=== PATIENT | male | born 1935 | race Caucasian/White ===

== ENCOUNTER 2017-10-03 08:09 | Inpatient (IN) ==
--- NOTE | 2017-10-03 08:22 | Emergency Department Report ---
General Adult HPI - General Chief complaint: Dizziness Stated complaint: Dizziness, weakness Time Seen by Provider: 10/03/17 08:20 Source: patient, family Mode of arrival: wheelchair Limitations: no limitations - History of Present Illness HPI narrative: 82 M presents to the emergency department with the chief complaint of feeling generally weak and off balance. Patient has noted gradual increase in symptoms over the past couple of weeks. Patient has been undergoing workup for anemia as an outpatient. He has noted dark and tarry stools. Patient is anticoagulated on Xarelto. He denies any current pain or discomfort. He was at home when his symptoms began. Symptoms have been persistent in nature since onset. He denies any trauma or injury. No other complaints or associated symptoms. He does note that he did not take his Xarelto today. He cannot tell me why he is currently taking the Xarelto. Last colonoscopy/EGD was one year ago and unremarkable per patient. He is currently undergoing evaluation by Dr. Silverman and Dr. Desir for anemia. - Related Data Home Medications Medication Instructions Recorded Confirmed Amlodipine [Norvasc] 10 mg PO HS 10/03/17 10/03/17 Apremilast [Otezla] 30 mg PO DAILY 10/03/17 10/03/17 Ascorbic Acid [Vitamin C] 1,000 mg PO DAILY 10/03/17 10/03/17 Atorvastatin [Lipitor] 20 mg PO HS 10/03/17 10/03/17 Carvedilol 25 mg PO BID 10/03/17 10/03/17 Ferrous Sulfate [Iron] 325 mg PO BID 10/03/17 10/03/17 Finasteride [Proscar] 5 mg PO HS 10/03/17 10/03/17 Fosinopril [Monopril] 20 mg PO BID 10/03/17 10/03/17 Insulin Degludec/Liraglutide 1 dose SQ DAILY 10/03/17 10/03/17 [Xultophy 100 Unit-3.6MG/ml Pen] Multivit-Min/FA/Lycopen/Lutein 1 tab PO DAILY 10/03/17 10/03/17 [Centrum Silver Tablet] Rivaroxaban [Xarelto] 15 mg PO DAILY 10/03/17 10/03/17 Sitagliptin Phosphate [Januvia] 50 mg PO HS 10/03/17 10/03/17 Tamsulosin [Flomax] 0.4 mg PO HS 10/03/17 10/03/17 Vit A/Vit C/Vit E/Zinc/Copper 1 tab PO DAILY 10/03/17 10/03/17 [Preservision Areds Tablet] hydroCHLOROthiazide 25 mg PO DAILY 10/03/17 10/03/17 [Hydrochlorothiazide] Allergies Allergy/AdvReac Type Severity Reaction Status Date / Time Sulfa (Sulfonamide Allergy Intermediate RASH Verified 10/03/17 08:15 Antibiotics) hydrocodone AdvReac Mild VOMITING Verified 10/03/17 08:15 oxycodone AdvReac Mild VOMITING Verified 10/03/17 08:15 Review of Systems Constitutional: Denies: fever, chills Eyes: Denies: eye pain, vision change ENT: Denies: ear pain, throat pain Cardiovascular: Denies: chest pain, palpitations Respiratory: Denies: cough, dyspnea Gastrointestinal: Reports: melena. Denies: abdominal pain, nausea, vomiting, diarrhea Genitourinary: Denies: urgency, dysuria Musculoskeletal: Denies: back pain, arthralgia Integumentary: Denies: erythema, rash Neurological: Denies: headache, numbness, paresthesias Psychiatric: Denies: anxiety, depression Endocrine: Denies: polydipsia, polyuria Hematological/Lymphatic: Denies: easy bruising, lymphadenopathy Allergic/Immunologic: Denies: facial swelling, urticaria PFSH Patient Stated Medical History Cataracts Yes Hearing Loss Yes: 'HARD OF HEARING' Coronary Artery Disease Yes Hypertension Yes Other Cardiology Yes: ABDOMINAL AORTIC STENT Sleep Apnea Yes Diabetes Mellitus Type 2 Yes Gastroesophageal Reflux Yes Disease Other Yes: PROSTATE CANCER Anemia Yes: TAKING IRON AND VITAMIN C FOR Osteoarthritis Yes Clinic Medical History (Last Updated 10/03/17 @ 11:32 by Leia Ochoa APRN) HTN (hypertension) (Acute Medical) Iron deficiency anemia (Acute Medical) Obesity (BMI 30-39.9) (Acute Medical) Type 2 diabetes mellitus (Acute Medical) Aortic aneurysm (Acute Medical ~2002) Arthritis (Acute Medical) Coronary artery disease (Acute Medical) H/O: Ken's palsy (Acute Medical ~03/25/12) Prostate cancer (Acute Medical ~2012) Sleep apnea (Acute Medical) uses CPAP Surgical History: -CABG 1999. = pacemaker insertion. -Aortic stent for aneurysm 2002. -Colonoscopy diverticulosis 2016. -EGD 2016. -Bilateral total knees. -Inguinal hernia repair Family History: Family History (Last Reviewed 06/09/17 @ 13:48 by Katerine Messina Mariana) Father Stroke High blood pressure Brother Diabetes Sister Skin cancer (melanoma) - Social History Smoking status: Former smoker Substance use type: does not use Alcohol intake frequency: a few times a month Physical Exam - Limitations Limitations: no limitations - General General appearance: alert, in no apparent distress - Normal Exams: Head:: Normocephalic without trauma Eyes:: Pupils are PERRLA w/ EOMI, No scleral icterus, irritation, or foreign bodies noted ENMT:: No facial trauma, nasal exudates, pharyngeal erythema, or exudates are noted Dental: No fractured, loose, or missing teeth noted Neck:: Full range of motion, without adenopathy, JVD, bruits or thyromegaly Chest/Respirations:: Clear all helton, with good airflow, and symmetry bilaterally Cardiovascular:: Regular rate and rhythm, without murmur or gallop, Pulses 2+ all extremities, capillary refill, <2 seconds all extremities Abdomen:: Bowel sounds positive, soft, non-tender, non-distended, no hepatosplenomegaly, masses or bruits noted (rectal exam was heme positive with tarry maroonish stool.) Lymphatic:: No lymphadenopathy, or lymphedema noted Musculoskeletal:: No tenderness, or deformity noted, good range of motion, all extremities Integumentary:: No rashes, hives, or bruising noted, hair and nails, without abnormality Neurological:: Patient is alert (Alert and oriented x 3. CN 2-12 intact. Normal strength. Normal motor. Normal sensation. Normal speech. Normal coordination. Reflexes 2/4 in all extremities. Absent Babinski bilaterally. Gait unable to be tested. No focal deficit.), and oriented, cranial nerves, motor/sensory/cerebellar, exams w/o gross deficits, to observation Psychiatric:: Patient exhibits, appropriate attention, emotion and affect Course Vital Signs Pulse Rate 75 10/03/17 08:11 Respiratory Rate 29 H 10/03/17 08:11 Blood Pressure 146/65 H 10/03/17 08:11 Pulse Oximetry 98 10/03/17 08:11 Temperature 96.3 F L 10/03/17 10:41 Pulse Rate 69 10/03/17 10:41 Respiratory Rate 22 10/03/17 10:41 Blood Pressure 158/77 H 10/03/17 10:41 Pulse Oximetry 99 10/03/17 10:41 Medical Decision Making - MDM Narrative Medical decision making narrative: Labs/imaging were discussed in detail with the patient and family and questions are answered. Patient is given 500 mL of normal saline intravenously times one. He is given Protonix 40 mg IV times one. Patient is discussed with the hospitalist Dr. Puri and will be admitted to her service in improved condition. Type and screen is ordered in the emergency department in the event patient may need a transfusion of PRBCS. Patient and family are in agreement with the current plan of management. Patient is admitted to the service of the hospitalist in improved condition. Patient declines offered analgesic pain medication in the emergency department as he is not having any current pain or discomfort. Temperature: 97.0 F - Differential Diagnosis GI BLEED, anemia, metabolic disorder, dehydration - Lab Data Result diagrams: 10/03/17 09:07 10/03/17 09:07 Lab Results 10/03/17 10/03/17 10/03/17 Range/Units 09:07 09:07 09:07 WBC 8.2 (4.5-11.0) T/MM3 RBC 2.37 L (4.50-5.90) M/MM3 Hgb 7.5 L (13.5-17.5) GM/DL Hct 23.3 L (41-53) % MCV 98.3 (80-100) UM3 MCH 31.6 (26-34) UUG MCHC 32.2 (31-37) GM/DL RDW Std Deviation 54.5 H (36.9-50.2) FL Plt Count 182 (130-400) T/MM3 MPV 8.9 L (9.4-12.4) UM3 Immature Gran % (Auto) 1.0 H (0.0-0.5) % Neut % (Auto) 73.7 H (33-66) % Lymph % (Auto) 14.6 L (23-45) % Barrow % (Auto) 8.6 (0-9.0) % Eos % (Auto) 1.7 (0-4) % Baso % (Auto) 0.4 (0-2) % Neut # (Auto) 6.1 (1.8-7.7) T/MM3 Lymph # (Auto) 1.2 (1-4.8) T/MM3 Barrow # (Auto) 0.7 (0-0.8) T/MM3 Eos # (Auto) 0.1 (0-0.5) T/MM3 Baso # (Auto) 0.0 (0-0.2) T/MM3 Abs Immat Gran (auto) 0.08 H (0.00-0.03) T/MM3 INR (0.92-1.18) Turbidity < 20 (0-20) Sodium 141 (136-146) MEQ/L Potassium 5.1 H (3.6-5) MEQ/L Chloride 109 H (98-107) MEQ/L Carbon Dioxide 23 (22-30) MEQ/L Anion Gap 9 (5-15) meq/L BUN 36.0 H (9-20) MG/DL Creatinine 1.9 H (0.8-1.5) mg/dL Estimated Creat Clear 38 (>50) mL/min GFR Calculation 34 (>60) mL/min BUN/Creatinine Ratio 19 (6-26) RATIO Glucose 152 H (75-110) MG/DL Calculated Osmolality 282 H (261-280) MOSM/KG Calcium 9.2 (8.4-10.2) MG/DL Iron (49-181) ug/dL TIBC (261-497) ug/dL % Saturation (13-59) % Total Bilirubin 0.20 (0.20-1.30) MG/DL Icterus Index < 2 (0-7) AST 18 (17-59) U/L ALT 15 (1-50) U/L Alkaline Phosphatase 43 (38-126) U/L Troponin I < 0.012 (0-0.12) ng/ml NT-Pro-B Natriuret Pep 256 H (0-175) pg/mL Total Protein 6.1 L (6.3-8.2) g/dL Albumin 3.5 (3.5-5.0) g/dL Globulin 2.6 (2.4-3.6) G/DL Albumin/Globulin Ratio 1.3 (1.1-2.2) RATIO Specimen Hemolysis < 15 (0-25) Blood Type Cancelled Antibody Screen Cancelled Crossmatch (AHG) 10/03/17 10/03/17 10/03/17 Range/Units 09:07 09:07 09:09 WBC (4.5-11.0) T/MM3 RBC (4.50-5.90) M/MM3 Hgb (13.5-17.5) GM/DL Hct (41-53) % MCV (80-100) UM3 MCH (26-34) UUG MCHC (31-37) GM/DL RDW Std Deviation (36.9-50.2) FL Plt Count (130-400) T/MM3 MPV (9.4-12.4) UM3 Immature Gran % (Auto) (0.0-0.5) % Neut % (Auto) (33-66) % Lymph % (Auto) (23-45) % Barrow % (Auto) (0-9.0) % Eos % (Auto) (0-4) % Baso % (Auto) (0-2) % Neut # (Auto) (1.8-7.7) T/MM3 Lymph # (Auto) (1-4.8) T/MM3 Barrow # (Auto) (0-0.8) T/MM3 Eos # (Auto) (0-0.5) T/MM3 Baso # (Auto) (0-0.2) T/MM3 Abs Immat Gran (auto) (0.00-0.03) T/MM3 INR 1.39 H (0.92-1.18) Turbidity (0-20) Sodium (136-146) MEQ/L Potassium (3.6-5) MEQ/L Chloride (98-107) MEQ/L Carbon Dioxide (22-30) MEQ/L Anion Gap (5-15) meq/L BUN (9-20) MG/DL Creatinine (0.8-1.5) mg/dL Estimated Creat Clear (>50) mL/min GFR Calculation (>60) mL/min BUN/Creatinine Ratio (6-26) RATIO Glucose (75-110) MG/DL Calculated Osmolality (261-280) MOSM/KG Calcium (8.4-10.2) MG/DL Iron 147 (49-181) ug/dL TIBC 313 (261-497) ug/dL % Saturation 47 (13-59) % Total Bilirubin (0.20-1.30) MG/DL Icterus Index (0-7) AST (17-59) U/L ALT (1-50) U/L Alkaline Phosphatase (38-126) U/L Troponin I (0-0.12) ng/ml NT-Pro-B Natriuret Pep (0-175) pg/mL Total Protein (6.3-8.2) g/dL Albumin (3.5-5.0) g/dL Globulin (2.4-3.6) G/DL Albumin/Globulin Ratio (1.1-2.2) RATIO Specimen Hemolysis (0-25) Blood Type AB Positive Antibody Screen Negative Crossmatch (AHG) See Detail - Radiology Data Chest x-ray: No acute processes. CT head: No acute processes. - EKG Data EKG #1 EKG results narrative: Electronic ventricular pacemaker. 74 bpm. No STEMI. Disposition Clinical Impression: GI bleed Qualifiers: GI bleed type/associated pathology: unspecified gastrointestinal hemorrhage type Qualified Code(s): K92.2 - Gastrointestinal hemorrhage, unspecified Disposition: 02 To [facility] Condition: Stable Time of Disposition: 09:30 (Admit. Dr. Puri. ) - Seen By: physician
--- OUTSIDE RECORDS SUMMARY | 2017-10-03 08:32 | External Medical Summary | Referral Summary ---
:1935 Author Organization [facility] Address [address] [place] [address] Care Team Providers Name Role Phone Vinny Licea Primary Care Physician Encounter [facility] [id number] Date(s): 06/21/17 - 06/21/17 [facility] [address] [place] [address]- [place] Encounter Diagnosis History of basal cell carcinoma (Discharge Diagnosis) - 06/21/17 Plaque psoriasis (Discharge Diagnosis) - 06/21/17 Discharge Disposition: 01-Home or Self Care Attending Physician: Josh You PA-C Admitting Physician: Josh You PA-C Problem List Condition Effective Dates Status Health Status Informant AAA (abdominal aortic Active aneurysm)(Confirmed) Abdominal Aortic Aneurysm(Confirmed) Resolved Adult-onset obesity(Confirmed) Active Anemia(Confirmed) Active Benign essential Active hypertension(Confirmed) Benign Prostatic Resolved hypertrophy(Confirmed) CABG/Pacemaker(Confirmed) Resolved Cardiac pacemaker(Confirmed) Active Chronic neck pain(Confirmed) Active Coronary Artery Disease(Confirmed) Resolved CAD (coronary artery Active disease)(Confirmed) DDD (degenerative disc disease), Active lumbar(Confirmed) Diabetic nephropathy(Confirmed) Active Displacement of lumbar Active intervertebral disc without myelopathy (disorder)(Confirmed) GERD without esophagitis(Confirmed) Active Hearing loss(Confirmed) Active Chronic right hip pain(Confirmed) Active Hypercholesterolemia(Confirmed) Active Adult hypothyroidism(Confirmed) Active Kidney stone(Confirmed) Active Low back pain (finding)(Confirmed) Active Lumbosacral spondylosis without Active myelopathy (disorder)(Confirmed) Cancer of prostate(Confirmed) Active NIDDY (non-insulin dependent Active diabetes mellitus in young)(Confirmed) Methicillin resistant Staphylococcus Active aureus(Confirmed)1 Overweight(Confirmed) Active PVD (peripheral vascular Active disease)(Confirmed) Prostate Cancer(Confirmed) Resolved Psoriasis(Confirmed) Active Bright red rectal Active bleeding(Confirmed) Sleep apnea(Confirmed) Active Spinal stenosis of lumbar region Active (disorder)(Confirmed) Thoracic or lumbosacral neuritis or Active radiculitis, unspecified(Confirmed) 1Wound from Buttock collected 06/25/15 10:16:00 CDT Allergies, Adverse Reactions, Alerts Substance Reaction Severity Status sulfamethoxazole Eczema (rash) Medium Active sulfanilamide topical Rash Active Medications amLODIPine 10 mg oral tablet 10 mg 1 tabs, Oral, Daily, # 90 tabs, 0 Refill(s), Pharmacy: [facility], 1 tabs Oral Daily Start Date: 11/23/16 Status: Orderedatorvastatin 20 mg oral tablet 20 mg 1 tabs, Oral, Daily, # 90 tabs, 0 Refill(s), Pharmacy: [facility], 1 tabs Oral Daily Start Date: 11/23/16 Status: Orderedbetamethasone dipropionate 0.05% topical ointment 1 danelle, Topical, BID, # 45 g, 3 Refill(s), Pharmacy: [facility] [id number] Start Date: 03/31/17 Status: Orderedcarvedilol 25 mg oral tablet See Instructions, TAKE 1 TABLET TWICE A DAY, # 180 tabs, 1 Refill(s), eRx: [facility] Start Date: 12/09/16 Status: Orderedfinasteride 5 mg oral tablet 5 mg 1 tabs, Oral, Daily, # 90 tabs, 1 Refill(s), Pharmacy: [facility], 1 tabs Oral Daily Start Date: 05/27/16 Status: Orderedfosinopril 20 mg oral tablet 20 mg 1 tabs, Oral, BID, # 180 tabs, 1 Refill(s), Pharmacy: [facility], 1 tabs Oral BID Start Date: 11/23/16 Status: OrderedhydroCHLOROthiazide 25 mg oral tablet 25 mg 1 tabs, Oral, Daily, # 90 tabs, 1 Refill(s), Pharmacy: [facility], 1 tabs Oral Daily Start Date: 05/27/16 Status: OrderedLantus Solostar Pen 100 units/mL subcutaneous solution 50 units, SubCutaneous, Bedtime (once a day), DX: E11.9, # 45 mL, 1 Refill(s), Pharmacy: [facility], 50 units SubCutaneous Bedtime ( once a day),Instr:DX: E11.9 Start Date: 05/27/16 Status: OrderedmetFORMIN 500 mg oral tablet See Instructions, 2 tabs oral in the morning and 3 tabs oral at bedtime., # 450 tabs, 0 Refill(s), Pharmacy: [facility], 2 tabs oral in the morning and 3 tabs oral at bedtime. Start Date: 11/23/16 Status: OrderedNovoLOG FlexPen 100 units/mL subcutaneous solution See Instructions, INJECT 20 UNITS SUBCUTANEOUSLY 3 TIMES A DAY BEFORE MEALS DX: E11.9,# 54 mL, 1 Refill(s), Pharmacy: [facility], INJECT 20 UNITS SUBCUTANEOUSLY 3 TIMES A DAY BEFORE MEALS; DX: E11.9 Start Date: 11/23/16 Status: OrderedOtezla 30 mg oral tablet 30 mg 1 tabs, Oral, BID, # 30 tabs, 0 Refill(s) Start Date: 12/03/15 Status: OrderedProtonix 40 mg oral delayed release tablet mg tabs, Oral, Daily, 0 Refill(s) Start Date: 07/15/16 Status: Orderedtamsulosin 0.4 mg oral capsule 0.4 mg 1 caps, Oral, Daily, # 90 caps, 1 Refill(s), Pharmacy: [facility], 1 caps Oral Daily Start Date: 05/27/16 Status: OrderedXarelto 15 mg oral tablet 15 mg 1 tabs, Oral, qPM, # 30 tabs, 0 Refill(s) Start Date: 07/16/15 Status: Ordered Immunizations Given and Recorded Vaccine Date Status Refusal Reason pneumococcal 13-valent conjugate vaccine 12/30/15 Given influenza virus vaccine, inactivated 12/30/15 Given influenza virus vaccine, inactivated 01/08/15 Given influenza virus vaccine, inactivated 12/04/13 Recorded influenza virus vaccine, live 11/30/12 Given influenza virus vaccine, live 11/11/11 Given Procedures Procedure Date Related Diagnosis Body Site Status Left L4-S1 Radiofrequency 07/05/13 Completed L4-5 Translaminar 06/19/13 Completed Lumbar epidural steroid injection - 12/09/10 Completed L2-3 translaminar Knee replacement - R 2007 Completed Knee replacement _ l 2007 Completed History of abdominal aortic aneurysm 2002 Completed repair CABG - Coronary artery bypass 2001 Completed graft/pacemaker Angioplasty 1990 Completed Hernia repair Completed History of back surgery Completed Social History Social History Type Response Smoking Status Former smoker; Type: Cigarettes entered on: 08/15/13 Assessment and Plan Extracted from: Title: Office Visit Note Author: Johs You PA-C Date: 06/21/17 1.Plaque psoriasis Patient is relatively clear on exam today. His problematic area continues to be the bilateral buttocks. He would like to continue the current regimen. Welcome to continue applying betamethason e topically, as needed. He was counseled on the use of topical steroids and their associated risks and side effects. I will refill Otezla for an additional year. He will continue with 30 mg daily due to associated GI upset. Patient welcome to follow up sooner with any concerns, otherwise will plan to follow-up on a yearly basis. Ordered: Office Visit Level 3 Est 00180 2.History of basal cell carcinoma No sign of recurrence at this time. I've asked the patient to monitor this lesion closely and follow-up with any concerns. Ordered: Office Visit Level 3 Est 61239
--- OUTSIDE RECORDS SUMMARY | 2017-10-03 08:32 | External Medical Summary | Referral Summary ---
:1935 Author Organization [facility] Address [address] [place] [address] Care Team Providers Name Role Phone Vinny Licea Primary Care Physician Encounter [facility] [id number] Date(s): 12/21/16 - 12/21/16 [facility] [address] [place] [address]- [place] Discharge Diagnosis: Psoriasis vulgaris Discharge Diagnosis: Neoplasm of uncertain behavior of skin Discharge Disposition: 01-Home or Self Care Attending [...] Daily, # 90 tabs, 0 Refill(s), Pharmacy: [facility], 1 tabs Oral Daily Start Date: 11/23/16 Status: Orderedatorvastatin 20 mg oral tablet 20 mg 1 tabs, Oral, Daily, # 90 tabs, 0 Refill(s), Pharmacy: [facility], 1 tabs Oral Daily Start Date: 11/23/16 Status: Orderedcarvedilol 25 mg oral tablet See Instructions, TAKE 1 TABLET TWICE A DAY, # 180 tabs, 1 Refill(s), eRx: [facility] Start Date: 12/09/16 Status: Orderedfinasteride 5 mg oral tablet 5 mg 1 tabs, Oral, Daily, # 90 tabs, 1 Refill(s), Pharmacy: [facility], 1 tabs Oral Daily Start Date: 05/27/16 Status: Orderedfosinopril 20 mg oral tablet 20 mg 1 tabs, Oral, BID, # 180 tabs, 1 Refill(s), Pharmacy: [facility], 1 tabs Oral BID Start Date: 11/23/16 Status: OrderedhydroCHLOROthiazide 25 mg oral tablet 25 mg 1 tabs, Oral, Daily, # 90 tabs, 1 Refill(s), Pharmacy: [facility], 1 tabs Oral Daily Start Date: 05/27/16 Status: OrderedLantus Solostar Pen 100 units/mL subcutaneous solution 50 units, SubCutaneous, Bedtime (once a day), DX: E11.9, # 45 mL, 1 Refill(s), Pharmacy: [facility], 50 units SubCutaneous Bedtime ( once a day),Instr:DX: E11.9 Start Date: 05/27/16 Status: OrderedmetFORMIN 500 mg oral tablet See Instructions, 2 tabs oral in the morning and 3 tabs oral at bedtime., # 450 tabs, 0 Refill(s), Pharmacy: [facility], 2 tabs oral in the morning and 3 tabs oral at bedtime. Start Date: 11/23/16 Status: OrderedNovoLOG FlexPen 100 units/mL subcutaneous solution See Instructions, INJECT 20 UNITS SUBCUTANEOUSLY 3 TIMES A DAY BEFORE MEALS DX: E11.9,# 54 mL, 1 Refill(s), Pharmacy: [facility], INJECT 20 UNITS SUBCUTANEOUSLY 3 TIMES [...] Daily, # 90 caps, 1 Refill(s), Pharmacy: [facility], 1 caps Oral Daily Start Date: [...] Procedures Procedure Date Related Diagnosis Body Site Biopsy of skin, subcutaneous tissue and/or 12/21/16 mucous membrane (including simple closure), unless otherwise listed; single lesion Left L4-S1 Radiofrequency 07/05/13 L4-5 Translaminar 06/19/13 Lumbar epidural steroid injection - L2-3 12/09/10 translaminar Knee replacement - R 2007 Knee replacement _ l 2007 History of abdominal aortic aneurysm repair 2002 CABG - Coronary artery bypass graft/pacemaker 2001 Angioplasty 1990 Hernia repair History of back surgery Social History Social History Type Response Smoking Status Former smoker; Type: Cigarettes entered on: 08/15/13 Assessment and Plan Extracted from: Title: Office Visit Note Author: Josh You PA-C Date: 12/21/16 1.Psoriasis vulgaris Patient continues to report almost complete clearance of psoriasis. He would like to continue with Otezla 30mg daily. He will continue to use his topical steroid twice daily, as needed. He was counseled on these medications and their associated risks and side effects. He is welcome to follow-up in 6 months for recheck, sooner if needed. Ordered: Office Visit Level 3 Est 38150 2.Neoplasm of uncertain behavior of skin BCC. Shave biopsy was performed and the patient tolerated this well. We will call with results. Options/risks/benefits of the procedure were discussed and explained and consent was obtained. Specifically discussed risks of scarring, abnormal scarring, skin changes such as color or texture hutchins es, recurrence, bleeding, infection, need for further treatment, and other unexpected risks/outcomes of these types of skin procedures. Final timeout performed. Site(s) for biopsy were prepared by c leaning and injecting each site with <1cc of buffered lidocaine with epi 1:100, 000. Site(s) were removed with shave blade in usual fashion. Hemostasis was obtained with drysol and/or hyfrecation as needed. Ointment and bandages placed where needed. Wound care instructions given Ordered: Biopsy Of Skin, Single Lesion 70702 Office Visit Level 3 Est 59899
--- OUTSIDE RECORDS SUMMARY | 2017-10-03 08:32 | External Medical Summary | Referral Summary ---
:1935 Author Organization [facility], [facility] Address [address] [place] [address] [place] [id number] Care Team Providers Name Role Phone Vinny Licea Primary Care Physician Encounter [facility] [id number] Date(s): 07/15/16 - 07/15/16 [facility] [address] [place] [phone] Discharge Diagnosis: NIDDY (non-insulin dependent diabetes mellitus in young) Discharge Diagnosis: Kidney stone Discharge Diagnosis: GERD without esophagitis Discharge Diagnosis: PVD (peripheral vascular disease) Discharge Diagnosis: CAD (coronary artery disease) Discharge Diagnosis: Benign essential hypertension Discharge Diagnosis: Cancer of prostate Discharge Diagnosis: Cardiac pacemaker Discharge Diagnosis: Adult hypothyroidism Discharge Diagnosis: Psoriasis Discharge Diagnosis: Dysuria Discharge Diagnosis: AAA (abdominal aortic aneurysm) Discharge Diagnosis: Adult-onset obesity Discharge Disposition: 01-Home or Self Care Attending Physician: Vinny Licea MD Admitting Physician: Vinny Licea MD Vital Signs Most recent to oldest [Reference Range]: 1 Blood Pressure [90-140/60-90 mmHg] 110/70 mmHg (07/15/16 4:33 PM) Problem List Condition Effective Dates Status Health [...] Daily, # 90 tabs, 1 Refill(s), Pharmacy: [facility], 1 tabs Oral Daily Start Date: 05/27/16 Status: Orderedatorvastatin 20 mg oral tablet 20 mg 1 tabs, Oral, Daily, # 90 tabs, 1 Refill(s), Pharmacy: [facility], 1 tabs Oral Daily Start Date: 05/27/16 Status: Orderedcarvedilol 25 mg oral tablet 25 mg 1 tabs, Oral, BID, # 180 tabs, 1 Refill(s), Pharmacy: [facility], 1 tabs Oral BID Start Date: 05/27/16 Status: OrderedCipro 500 mg oral tablet 500 mg 1 tabs, Oral, q12hr, X 10 days, # 20 tabs, 0 Refill(s), [id number],1 tabs Oral q12hr,x10 days Start Date: 07/15/16 Stop Date: 07/25/16 Status: Orderedfinasteride 5 mg oral tablet 5 mg 1 tabs, Oral, Daily, # 90 tabs, 1 Refill(s), Pharmacy: [facility], 1 tabs Oral Daily Start Date: 05/27/16 Status: Orderedfosinopril 20 mg oral tablet 20 mg 1 tabs, Oral, BID, # 180 tabs, 1 Refill(s), Pharmacy: [facility], 1 tabs Oral BID Start Date: 05/27/16 Status: OrderedhydroCHLOROthiazide 25 mg oral tablet 25 mg 1 tabs, Oral, Daily, # 90 tabs, 1 Refill(s), Pharmacy: [facility], 1 tabs Oral Daily Start Date: 05/27/16 Status: OrderedLantus Solostar Pen 100 units/mL subcutaneous solution 50 units, SubCutaneous, Bedtime (once a day), DX: E11.9, # 45 mL, 1 Refill(s), Pharmacy: [facility], 50 units SubCutaneous Bedtime ( once a day),Instr:DX: E11.9 Start Date: 05/27/16 Status: OrderedmetFORMIN 500 mg oral tablet See Instructions, 2 tabs oral in the morning and 3 tabs oral at bedtime., # 450 tabs, 1 Refill(s), Pharmacy: [facility], 2 tabs oral in the morning and 3 tabs oral at bedtime. Start Date: 05/27/16 Status: OrderedNovoLOG FlexPen 100 units/mL subcutaneous solution See Instructions, INJECT 20 UNITS SUBCUTANEOUSLY 3 TIMES A DAY BEFORE MEALS DX: E11.9,# 54 mL, 1 Refill(s), Pharmacy: [facility], INJECT 20 UNITS SUBCUTANEOUSLY 3 TIMES A DAY BEFORE MEALS; DX: E11.9 Start Date: 05/27/16 Status: OrderedOtezla 30 mg oral tablet 30 mg 1 tabs, Oral, BID, # 30 tabs, 0 Refill(s) Start Date: 12/03/15 Status: OrderedProtonix 40 mg oral delayed release tablet mg tabs, Oral, Daily, 0 Refill(s) Start Date: 07/15/16 Status: Orderedtamsulosin 0.4 mg oral capsule 0.4 mg 1 caps, Oral, Daily, # 90 caps, 1 Refill(s), Pharmacy: [facility], 1 caps Oral Daily Start Date: 05/27/16 Status: OrderedXarelto 15 mg oral tablet 15 mg 1 tabs, Oral, qPM, # 30 tabs, 0 Refill(s) Start Date: 07/16/15 Status: Ordered Results Urinalysis Most recent to oldest [Reference Range]: 1 UA Color Yellow (07/15/16 5:22 PM) UA Appear Clear (07/15/16 5:22 PM) UA pH [5.0-8.0] 6.0 (07/15/16 5:22 PM) UA Leuk Est [Negative] Negative (07/15/16 5:22 PM) UA Nitrite [Negative] Negative (07/15/16 5:22 PM) UA Protein [Negative] Negative (07/15/16 5:22 PM) UA Glucose [Negative] Negative (07/15/16 5:22 PM) UA Ketones [Negative] Negative (07/15/16 5:22 PM) UA Urobilinogen [<1.0 mg/dL] 1.0 mg/dL (07/15/16 5:22 PM) UA Bili [Negative] Negative (07/15/16 5:22 PM) UA Blood [Negative] Negative (07/15/16 5:22 PM) UA Spec Grav [1.003-1.030] 1.010 (07/15/16 5:22 PM) Type Voided (07/15/16 5:22 PM) Immunizations Given and Recorded Vaccine Date Status Refusal Reason influenza virus vaccine, inactivated 12/30/15 Given influenza virus vaccine, inactivated 01/08/15 Given influenza virus vaccine, inactivated 12/04/13 Recorded influenza virus vaccine, live 11/30/12 Given influenza virus vaccine, live 11/11/11 Given pneumococcal 13-valent conjugate vaccine 12/30/15 Given Procedures Procedure Date Related Diagnosis Body Site Left L4-S1 Radiofrequency 07/05/13 L4-5 Translaminar 06/19/13 Lumbar epidural steroid injection - L2-3 12/09/10 translaminar Knee replacement - R 2007 Knee replacement _ l 2007 History of abdominal aortic aneurysm repair 2002 CABG - Coronary artery bypass graft/pacemaker 2001 Angioplasty 1990 Hernia repair History of back surgery Social History Social History Type Response Smoking Status Former smoker; Type: Cigarettes Assessment and Plan Extracted from: Title: Ambulatory Patient Education Author: Vinny Licea MD Date: Surgery Abdominal Aortic Aneurysm Endograft Repair Abdominal aortic aneurysm endograft repair is a procedure to fix an abdominal aortic aneurysm. An aneurysm is a weakened or damaged part of an artery wall that bulges out from the normal force of blood pumping through the body. An abdominal aortic aneurysm is an aneurysm that occurs in the lower part of the aorta, the main artery of the body. The repair procedure is often done if the aneurysm gets so large that it might burst (rupture). A ruptured aneurysm would cause bleeding inside the body that is life threatening. Before that happens, th is procedure is needed to fix the condition. The procedure may also be done if the aneurysm causes symptoms such as pain in the back, abdomen, or side. In this procedure, a tube made up of fabric suppor castro by a metal mesh (endograft or stent-graft) is placed in the weakened part of the aorta to repair the area. This procedure may take 1 3 hours. LET YOUR HEALTH CARE PROVIDER KNOW ABOUT: Any allergies you have. All medicines you are taking, including vitamins, herbs, eye drops, creams, and dwdw-hye-rpdnpzr medicines. Anysteroids you are using (by mouth or as creams). Previous problems you or members of your family have had with the use of anesthetics. Any blood disorders or history of blood clots. Previous surgeries you have had. Other health problems you have. Possibility of , if this applies. RISKS AND COMPLICATIONS Generally, endograft repair of an abdominal aortic aneurysm is a safe procedure. However, as with any surgical procedure, complications can occur. Possible complications include: Leaking of blood around the endograft. Infection. Damage to surrounding nerves, tissues, or structures. Displacement of the endograft away from the proper location. Blockage of blood flow through the graft. Blood clots. Kidney problems. Blockage of blood flow to the legs (rare). Rupture of the aorta even after successful endograft repair (rare). BEFORE THE PROCEDURE You may need to have blood tests, a test to check heart rhythm ( electrocardiography), or a test to check blood flow (angiography) done before the day of the procedure. Imaging tests will be done to help determine the size and location of the aneurysm. This could include ultrasonography, a CT scan, or an MRI. Ask your health care provider about changing or stopping your regular medicines. Do not eat or drink anything for at least 8 hours before the procedure. Ask your health care provider if it is okay to take any needed medicines with a sip of water. Do not smoke for as long as possible before the surgery. Make plans to have someone drive you home after your hospital stay. PROCEDURE You will be given medicine to help you relax (sedative). You may also be given medicine to make you sleep through the procedure (general anesthetic) or medicine to numb the affected area of the body (local orregional anesthetic). Medicine may be given through an intravenous (IV) access tube that is put into one of your veins. Your groin area will be washed with a germ-killing solution (antiseptic). Hair may be removed from this area. Small cuts (incisions) are usually made on both sides of the groin. Long, thin tubes (catheters) are passed through these incisions, inserted into the artery in your thigh, and moved up into the aneurysm in the aorta. The health care provider uses live X-ray pictures to guide the endograft through the catheterto the site of the aneurysm. The endograft is released to seal off the aneurysm and line the aorta. It prevents blood from flowing into the aneurysm and helps prevent it from rupturing. The placement of the endograft is permanent. X-rays are used to check the position of the endograft and confirm proper placement. The catheters are taken out, and the incisions are closed with stitches. AFTER THE PROCEDURE You will need to lie flat for several hours. Bending the leg that has the insertion site can cause it to bleed and swell. You will then be encouraged to move around several times a day and to gradually increase activity. Your blood pressure and pulse (vital signs) will be checked often. You will receive medicines to control pain. Certain tests may be done to check the function and location of the endograft after your procedure. You will need to stay in the hospital for about 1 4 days. This information is not intended to replace advice given to you by your health care provider. Make sure you discuss any questions you have with your health care provider. Document Released: 07/04/2009 Document Revised: 01/27/2016 Document Reviewed: 07/07/2013 [employer] Interactive Patient Education 2016 [employer] No follow up information was provided. Extracted from: Title: Office Visit Note Author: Vinny Licea MD Date: 07/15/16 Assessment/Plan AAA (abdominal aortic aneurysm) This issue was reviewed, appears stable, and current therapy continued except as mentioned. Appropriate lab was reviewed from the most recent appropriate entry and lab was ordered if needed in the c guy/nursing orders, and follow up recommended generally in 90 days and no later then six months. Normal CT with Dr. Aponte on 04/07/2016 reported. Adult hypothyroidism This issue was reviewed, appears stable, and current therapy continued except as mentioned. Appropriate lab was reviewed from the most recent appropriate entry and lab was ordered if needed in the c guy/nursing orders, and follow up recommended generally in 90 days and no later then six months. Lab stable. Adult-onset obesity Diet and exercise as tolerated and feasible. Consider medication when interested. Benign essential hypertension This issue was reviewed, appears stable, and current therapy continued except as mentioned. Appropriate lab was reviewed from the most recent appropriate entry and lab was ordered if needed in the c guy/nursing orders, and follow up recommended generally in 90 days and no later then six months. The patient reports their blood pressure has been stable at home and is not having any significant or related problems. There has been no chest pain, chest pressure, soa/maldonado. IMPRESSION: Mild degenerative changes with no acute abnormalities demonstrated. [1] IMPRESSION: Questionable constipation. [2] CAD (coronary artery disease) This issue was reviewed, appears stable, and current therapy continued except as mentioned. Appropriate lab was reviewed from the most recent appropriate entry and lab was ordered if needed in the c guy/nursing orders, and follow up recommended generally in 90 days and no later then six months. [address] Hannah. Cancer of prostate This issue was reviewed, appears stable, and current therapy continued except as mentioned. Appropriate lab was reviewed from the most recent appropriate entry and lab was ordered if needed in the cpoe/nursing orders, and follow up recommended generally in 90 days and no later then six months. Seeing Urology in [facility]. Note from 03/31 reviewed. Cardiac pacemaker This issue was reviewed, appears stable, and current therapy continued except as mentioned. Appropriate lab was reviewed from the most recent appropriate entry and lab was ordered if needed in the c guy/nursing orders, and follow up recommended generally in 90 days and no later then six [address] Aponte. Dysuria UA pending. Cipro 500mg po bid for ten days. GERD without esophagitis This issue was reviewed, appears stable, and current therapy continued except as mentioned. Appropriate lab was reviewed from the most recent appropriate entry and lab was ordered if needed in the c guy/nursing orders, and follow up recommended generally in 90 days and no later then six months. Kidney stone UA and Urology consultation when willing. NIDDY (non-insulin dependent diabetes mellitus in young) The patient was notified for the need for regular quarterly f/u of their diabetes. Further any pertinent medication, supplies, etc were refilled. Additionally, they are to have annual eye exams, foot exams, and regular care. Lab stable. Psoriasis This issue was reviewed, appears stable, and current therapy continued except as mentioned. Appropriate lab was reviewed from the most recent appropriate entry and lab was ordered if needed in the c guy/nursing orders, and follow up recommended generally in 90 days and no later then six months. Seeing Derm. Impression and Plan Diagnosis Plaque psoriasis ([id number] L40.0, Working, Medical). Counseled: Patient, Family, Regarding diagnosis, Regarding treatment , Regarding medications, Verbalized understanding. Dx/Order Association Plan: Diagnosis: Plaque psoriasis Comment: Overall responding well to Otezla but no completely clear with residual plaques on back, buttocks. He is having some diarrhea at times from otezla. After discussion patient and his wi fe they would like to first try to cut back on Otezla to 30mg QD for a couple months. If not effective or if persistent diarrhea then they will f/u for probable planning for humira next step. Follow up in 3 months or sooner as needed. . This note is prepared by Vinny Gregg, acting as medical reimbursement specialist for Dr. Haezl. The documentation recorded by the scribe reflects the service I personally performed and the decisions made by me. [3] PVD (peripheral vascular disease) This issue was reviewed, appears stable, and current therapy continued except as mentioned. Appropriate lab was reviewed from the most recent appropriate entry and lab was ordered if needed in the c guy/nursing orders, and follow up recommended generally in 90 days and no later then six months.
--- OUTSIDE RECORDS SUMMARY | 2017-10-03 08:32 | External Medical Summary | Referral Summary ---
:1935 Author Organization [facility] Address [address] [place] [address] Care Team Providers Name Role Phone Vinny Licea Primary Care Physician Encounter VC Date(s): 06/01/16 - 06/01/16 [facility] [address] [place] [address]- us Discharge Disposition: 01-Home or Self Care Attending Physician: Washington Hazel MD Admitting Physician: Washington Hazel MD Vital Signs No data available for this section Problem List Condition Effective Dates Status Health [...] pain(Confirmed) Active Hypercholesterolemia(Confirmed) Active Adult hypothyroidism(Confirmed) Active Low back pain (finding)(Confirmed) Active Lumbosacral [...] Daily, # 90 tabs, 1 Refill(s), Pharmacy: [facility], 1 tabs Oral Daily Start Date: 05/27/16 Status: Orderedatorvastatin 20 mg oral tablet 20 mg 1 tabs, Oral, Daily, # 90 tabs, 1 Refill(s), Pharmacy: [facility], 1 tabs Oral Daily Start Date: 05/27/16 Status: Orderedbetamethasone dipropionate 0.05% topical ointment 1 danelle, Topical, BID, # 45 g, 3 Refill(s), [facility] [id number] Start Date: 10/01/15 Status: Orderedcarvedilol 25 mg oral tablet 25 mg 1 tabs, Oral, BID, # 180 tabs, 1 Refill(s), Pharmacy: [facility], 1 tabs Oral BID Start Date: 05/27/16 Status: Orderedfinasteride 5 mg oral tablet 5 mg 1 tabs, Oral, Daily, # 90 tabs, 1 Refill(s), Pharmacy: [facility], 1 tabs Oral Daily Start Date: 05/27/16 Status: Orderedfosinopril 20 mg oral tablet 20 mg 1 tabs, Oral, BID, # 180 tabs, 1 Refill(s), Pharmacy: [facility], 1 tabs Oral BID Start Date: 05/27/16 Status: OrderedhydroCHLOROthiazide 25 mg oral tablet 25 mg 1 tabs, Oral, Daily, # 90 tabs, 1 Refill(s), Pharmacy: [facility], 1 tabs Oral Daily Start Date: 05/27/16 Status: OrderedLantus Solostar Pen 100 units/mL subcutaneous solution 50 units, SubCutaneous, Bedtime (once a day), DX: E11.9, # 45 mL, 1 Refill(s), Pharmacy: [facility], 50 units SubCutaneous Bedtime ( once a day),Instr:DX: E11.9 Start Date: 05/27/16 Status: OrderedmetFORMIN 500 mg oral tablet See Instructions, 2 tabs oral in the morning and 3 tabs oral at bedtime., # 450 tabs, 1 Refill(s), Pharmacy: [facility], 2 tabs oral in the morning and 3 tabs oral at bedtime. Start Date: 05/27/16 Status: OrderedNovoLOG FlexPen 100 units/mL subcutaneous solution See Instructions, INJECT 20 UNITS SUBCUTANEOUSLY 3 TIMES A DAY BEFORE MEALS DX: E11.9,# 54 mL, 1 Refill(s), Pharmacy: [facility], INJECT 20 UNITS SUBCUTANEOUSLY 3 TIMES A DAY BEFORE MEALS; DX: E11.9 Start Date: 05/27/16 Status: OrderedOtezla 30 mg oral tablet 30 mg 1 tabs, Oral, BID, # 30 tabs, 0 Refill(s) Start Date: 12/03/15 Status: Orderedtamsulosin 0.4 mg oral capsule 0.4 mg 1 caps, Oral, Daily, # 90 caps, 1 Refill(s), Pharmacy: [facility], 1 caps Oral Daily Start Date: 05/27/16 Status: OrderedXarelto 15 mg oral tablet 15 mg 1 tabs, Oral, qPM, # 30 tabs, 0 Refill(s) Start Date: 07/16/15 Status: Ordered Results No data available for this section Immunizations Given and Recorded Vaccine Date Status [...] Extracted from: Title: Ambulatory Patient Education Author: Washington Hazel MD Date: 06/01/16 Home Health Care Psoriasis Psoriasis is a long-term (chronic) condition of skin inflammation. It occurs because your immune system causes skin cells to form too quickly. As a result, too many skin cells grow and create raised, re d patches (plaques) that look silvery on your skin. Plaques may appear anywhere on your body. They can be any size or shape. Psoriasis can come and go. The condition varies from mild to very severe. It cannot be passed from one person to another (not contagious). CAUSES The cause of psoriasis is not known, but certain factors can make the condition worse. These include: Damage or trauma to the skin, such as cuts, scrapes, sunburn, and dryness. Lack of sunlight. Certain medicines. Alcohol. Tobacco use. Stress. Infections caused by bacteria or viruses. RISK FACTORS This condition is more likely to develop in: People with a family history of psoriasis. People who are . People who are between the ages of 15 30 and 50 60 years old. SYMPTOMS There are five different types of psoriasis. You can have more than one type of psoriasis during your life. Types are: Plaque. Guttate. Inverse. Pustular. Erythrodermic. Each type of psoriasis has different symptoms. Plaque psoriasis symptoms include red, raised plaques with a silvery white coating (scale). These plaques may be itchy. Your nails may be pitted and crumbly or fall off. Guttate psoriasis symptoms include small red spots that often show up on your trunk, arms, and legs. These spots may develop after you have been sick, especially with strep throat. Inverse psoriasis symptoms include plaques in your underarm area, under your breasts, or on your genitals, groin, or buttocks. Pustular psoriasis symptoms include pus-filled bumps that are painful, red, and swollen on the palms of your hands or the soles of your feet. You also may feel exhausted, feverish, weak, or have no appetite. Erythrodermic psoriasis symptoms include bright red skin that may look burned. You may have a fast heartbeat and a body temperature that is too high or too low. You may be itchy or in pain. DIAGNOSIS Your health care provider may suspect psoriasis based on your symptoms and family history. Your health care provider will also do a physical exam. This may include a procedure to remove a tissue sample (biopsy) for testing. You may also be referred to a health care provider who specializes in skin diseases (software database architect). TREATMENT There is no cure for this condition, but treatment can help manage it. Goals of treatment include: Helping your skin heal. Reducing itching and inflammation. Slowing the growth of new skin cells. Helping your immune system respond better to your skin. Treatment varies, depending on the severity of your condition. Treatment may include: Creams or ointments. Ultraviolet ray exposure (light therapy). This may include natural sunlight or light therapy in a medical office. Medicines (systemic therapy). These medicines can help your body better manage skin cell turnover and inflammation. They may be used along with light therapy or ointments. You may also get antibiotic medicines if you have an infection. HOME CARE INSTRUCTIONS Skin Care Moisturize your skin as needed. Only use moisturizers that have been approved by your health care provider. Apply cool compresses to the affected areas. Do not scratch your skin. Lifestyle Do not use tobacco products. This includes cigarettes, chewing tobacco, and e- cigarettes. If you need help quitting, ask your health care provider. Drink little or no alcohol. Try techniques for stress reduction, such as meditation or yoga. Get exposure to the sun as told by your health care provider. Do not get sunburned. Consider joining a psoriasis support group. Medicines Take or use [id number]-vch-[id number] and prescription medicines only as told by your health care provider. If you were prescribed an antibiotic, take or use it as told by your health care provider. Do not stop taking the antibiotic even if your condition starts to improve. General Instructions Keep a journal to help track what triggers an outbreak. Try to avoid any triggers. See a counselor or social services manager if feelings of sadness, frustration, and hopelessness about your condition are interfering with your work and relationships. Keep all follow-up visits as told by your health care provider. This is important. SEEK MEDICAL CARE IF: Your pain gets worse. You have increasing redness or warmth in the affected areas. You have new or worsening pain or stiffness in your joints. Your nails start to break easily or pull away from the nail bed. You have a fever. You feel depressed. This information is not intended to replace advice given to you by your health care provider. Make sure you discuss any questions you have with your health care provider. Document Released: 02/12/2001 Document Revised: 11/06/2015 Document Reviewed: 07/03/2015 [employer] Patient Education 2016 [employer] No follow up information was provided. Extracted from: Title: Dermatology Visit * Author: Washington Hazel MD Date: 06/01/16 Impression and Plan Diagnosis Plaque psoriasis ([id number]-JS L40.0, Working, Medical). Counseled: Patient, Family, Regarding diagnosis, Regarding treatment, Regarding medications, Verbalized understanding. Dx/Order Association Plan: Diagnosis: Plaque psoriasis Comment: Overall responding well to Otezla but no completely clear with residual plaques on back, buttocks. He is having some diarrhea at times from otezla. After discussion patient and his they would like to first try to cut back on Otezla to 30mg QD for a couple months. If not effective or if persistent diarrhea then they will f/u for probable planning for humira next step. Follow up in 3 months or sooner as needed. . This note is prepared by Vinny Gregg, acting as medical art therapist for Dr. Hazel. The documentation recorded by the scribe reflects the service I personally performed and the decisions made by me.
--- OUTSIDE RECORDS SUMMARY | 2017-10-03 08:32 | External Medical Summary | Summary of Care ---
:1935 Author Name Cortez Guerrier M.D. Address [address] [place] [address] [place] [address] Care Team Providers Name Role Phone Cortez Guerrier M.D. Unavailable Unavailable Vinny Licea Unavailable Unavailable Unavailable Unavailable Unavailable Functional Status Functional Status Health Issues Name Dates Details Functional status health issues are not documented Status: Cognitive Status Health Issues Name Dates Details Cognitive status health issues are not documented Status: Problems Name Dates Details Rising PSA level (790.93, R97.20) Status: Active Malignant neoplasm of prostate (185, C61) Status: Active UTI (urinary tract infection) (599.0, N39.0) Status: Active Slow urinary stream (788.62, R39.198) Status: Active Enlarged prostate with lower urinary tract symptoms (LUTS) (600.01, N40.1) Status: Active Medications Name Dates Details Lipitor 20 MG Oral Tablet Refills: 0 Active Carvedilol 25 MG Oral Tablet Refills: 0 Active Famotidine 20 MG Oral Tablet Refills: 0 Active Finasteride 5 MG Oral Tablet Refills: 0 Active Fosinopril Sodium 20 MG Oral Tablet Refills: 0 Active Lantus 100 UNIT/ML Subcutaneous Solution Refills: 0 Active MetFORMIN HCl - 500 MG Oral Tablet Refills: 0 Active Tamsulosin HCl 0.4 MG CP24 Refills: 0 Active Norvasc 10 MG Oral Tablet Refills: 0 Active NovoLOG PenFill 100 UNIT/ML SOLN Refills: 0 Active HydroCHLOROthiazide 12.5 MG Oral Capsule Refills: 0 Active Otezla 30 MG Oral Tablet Take 1 tablet twice daily Refills: 0 Start : 06-Sep-2015 Active Triamcinolone Acetonide 0.025 % External Cream Refills: 0 Start : 06-Sep-2015 Active Xarelto 15 MG Oral Tablet Refills: 0 Start : 06-Sep-2015 Active Allergies and Adverse Reactions Name Dates Details Sulfa Drugs (Allergy) Status: Active Past Medical History Name Dates Details History of arthritis (V13.4, Z87.39) Status: Resolved 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, 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 History of BPH (benign prostatic hypertrophy) (600.00, N40.0) Status: Resolved History of diabetes mellitus (V12.29, Z86.39) Status: Resolved History of esophageal reflux (V12.79, Z87.19) Status: Resolved History of gout (V12.29, Z87.39) Status: Resolved History of hypertension (V12.59, Z86.79) Status: Resolved History of Proteinuria (791.0, R80.9) Status: Resolved Procedures Procedure Dates Details CT AB/ PEL WITHOUT AND WITH ORAL AND IV CONTRAST Date: 23-Sep-2016 BONE SCAN WHOLE BODY Date: 23-Sep-2016 History of Hernia Repair Completed History of CABG Completed History of Previous Stent Placement Completed History of Total Knee Arthroplasty Completed History of Knee Replacement Completed History of Pacemaker Placement Completed Immunization Name Dates Details Immunizations not documented Family History Mother Name Dates Details Family history of Status: Active Father Name Dates Details Family history of Status: Active Family history of cerebrovascular accident (CVA) (V17.1, Z82.3) Status: Active Sister Name Dates Details Family history of Status: Active Family history of malignant neoplasm (V16.9, Z80.9) Status: Active Family history of cardiac disorder (V17.49, Z82.49) Status: Active Brother Name Dates Details Family history of Status: Active Family history of myocardial infarction (V17.3, Z82.49) Status: Active Social History Name Dates Details - Status: Smoking Status Name Dates Details Former smoker Vital Signs Date Test Result Details No Known Vitals to report Results Date Description Value Details Results not documented Plan of Care Name Dates Details Planned Observations Planned Goals not documented Planned Encounters Appointment; Cortez Guerrier M.D. On: 07-Apr-2017 9:00 Instructions Name Dates Details Instructions not documented Encounters Appointment; Cortez Guerrier M.D. On: 13-Mar-2015 9:30 Encounter Diagnosis: Problem not documented Appointment; Cortez Guerrier M.D. On: 10-Apr-2015 10:30 Encounter Diagnosis: Problem not documented Appointment; Cortez Guerrier M.D. On: 06-Sep-2015 8:45 Encounter Diagnosis: Problem not documented Appointment; Cortez Guerrier M.D. On: 11-Mar-2016 10:00 Encounter Diagnosis: Problem not documented Appointment; Cortez Guerrier M.D. On: 23-Sep-2016 8:45 Encounter Diagnosis: Problem not documented Appointment; Cortez Guerrier M.D. On: 29-Sep-2016 15:15 Encounter Diagnosis: Problem not documented
--- OUTSIDE RECORDS SUMMARY | 2017-10-03 08:32 | External Medical Summary | Referral Summary ---
:1935 Author Organization [facility] Address [address] [place] [address] Care Team Providers Name Role Phone Vinny Licea Primary Care Physician Encounter Date(s): 10/27/16 - 10/27/16 [facility] [address] [place] [address]- [place] Discharge Diagnosis: Psoriasis vulgaris Discharge Disposition: 01-Home or Self Care Attending Physician: Josh You PA-C Problem List Condition [...] Daily, # 90 tabs, 1 Refill(s), Pharmacy: [facility], 1 tabs Oral Daily Start Date: 05/27/16 Status: Orderedatorvastatin 20 mg oral tablet 20 mg 1 tabs, Oral, Daily, # 90 tabs, 1 Refill(s), Pharmacy: [facility], 1 tabs Oral Daily Start Date: 05/27/16 Status: Orderedcarvedilol 25 mg oral tablet 25 mg 1 tabs, Oral, BID, # 180 tabs, 1 Refill(s), Pharmacy: [facility], 1 tabs Oral BID Start Date: 05/27/16 Status: Orderedfinasteride 5 mg oral tablet 5 mg 1 tabs, Oral, Daily, # 90 tabs, 1 Refill(s), Pharmacy: [facility], 1 tabs Oral Daily Start Date: 05/27/16 Status: Orderedfosinopril 20 mg oral tablet 20 mg 1 tabs, Oral, BID, # 180 tabs, 1 Refill(s), Pharmacy: [facility], 1 tabs Oral BID Start Date: 05/27/16 Status: OrderedhydroCHLOROthiazide 25 mg oral tablet 25 mg 1 tabs, Oral, Daily, # 90 tabs, 1 Refill(s), Pharmacy: [facility], 1 tabs Oral Daily Start Date: 05/27/16 Status: OrderedLantus Solostar Pen 100 units/mL subcutaneous solution 50 units, SubCutaneous, Bedtime (once a day), DX: E11.9, # 45 mL, 1 Refill(s), Pharmacy: [facility], 50 units SubCutaneous Bedtime ( once a day),Instr:DX: E11.9 Start Date: 05/27/16 Status: OrderedmetFORMIN 500 mg oral tablet See Instructions, 2 tabs oral in the morning and 3 tabs oral at bedtime., # 450 tabs, 1 Refill(s), Pharmacy: [facility], 2 tabs oral in the morning and 3 tabs oral at bedtime. Start Date: 05/27/16 Status: OrderedNovoLOG FlexPen 100 units/mL subcutaneous solution See Instructions, INJECT 20 UNITS SUBCUTANEOUSLY 3 TIMES A DAY BEFORE MEALS DX: E11.9,# 54 mL, 1 Refill(s), Pharmacy: [facility], INJECT 20 UNITS SUBCUTANEOUSLY 3 [...] Daily, # 90 caps, 1 Refill(s), Pharmacy: [facility], 1 caps Oral Daily Start [...] Extracted from: Title: Office Visit Note Author: Youngers, Josh A PA-C Date: 10/27/16 1.Psoriasis vulgaris There is considerable improvement from previous exam. We have discussed the use ofOtezla, as well as the often transient effect of diarrhea. At this time, the patient and his would like t o increasehis dose to twice daily againto see if he tolerates this dose. However, if diarrhea returns and persists,they will decide if they want to stay on once daily dosing ofOtezla, versus other options including Humira which was previously discussed. He is welcome to continue using thetopical steroidtwice daily, as needed. Was counseled on the use of these medications and their associated risks and side effects. Ordered: Office Visit Level 3 Est [address]94
--- OUTSIDE RECORDS SUMMARY | 2017-10-03 08:32 | External Medical Summary | Referral Summary ---
:1935 Author Organization [facility] Address [address] [place] [address] Care Team Providers Name Role Phone Vinny Licea Primary Care Physician Encounter VC Date(s): 09/09/16 - 09/09/[address] [address] Discharge Disposition: 01-Home or Self Care Attending Physician: Rakesh Aponte MD Vital Signs No data available for [...] 1 Refill(s), Pharmacy: [facility], 1 tabs Oral Daily Start Date: 05/27/16 Status: Orderedatorvastatin 20 mg oral tablet 20 mg 1 tabs, Oral, Daily, # 90 tabs, 1 Refill(s), Pharmacy: [facility], 1 tabs Oral Daily Start Date: 05/27/16 Status: Orderedcarvedilol 25 mg oral tablet 25 mg 1 tabs, Oral, BID, # 180 tabs, 1 Refill(s), Pharmacy: [facility], 1 tabs Oral BID Start Date: 05/27/16 Status: Orderedfinasteride 5 mg oral tablet 5 mg 1 tabs, Oral, Daily, # 90 tabs, 1 Refill(s), Pharmacy: [facility], 1 tabs Oral Daily Start Date: 05/27/16 Status: Orderedfosinopril 20 mg oral tablet 20 mg 1 tabs, Oral, BID, # 180 tabs, 1 Refill(s), Pharmacy: [facility], 1 tabs Oral BID Start Date: 05/27/16 Status: OrderedhydroCHLOROthiazide 25 mg oral tablet 25 mg 1 tabs, Oral, Daily, # 90 tabs, 1 Refill(s), Pharmacy: [facility], 1 tabs Oral Daily Start Date: 05/27/16 Status: OrderedLantus Solostar Pen 100 units/mL subcutaneous solution 50 units, SubCutaneous, Bedtime (once a day), DX: E11.9, # 45 mL, 1 Refill(s), Pharmacy: [facility], 50 units SubCutaneous Bedtime ( once a day),Instr:DX: E11.9 Start Date: 05/27/16 Status: OrderedmetFORMIN 500 mg oral tablet See Instructions, 2 tabs oral in the morning and 3 tabs oral at bedtime., # 450 tabs, 1 Refill(s), Pharmacy: [facility], 2 tabs oral in the morning and 3 tabs oral at bedtime. Start Date: 05/27/16 Status: OrderedNovoLOG FlexPen 100 units/mL subcutaneous solution See Instructions, INJECT 20 UNITS SUBCUTANEOUSLY 3 TIMES A DAY BEFORE MEALS DX: E11.9,# 54 mL, 1 Refill(s), Pharmacy: [facility], INJECT 20 UNITS SUBCUTANEOUSLY 3 TIMES [...] 1 Refill(s), Pharmacy: [facility], 1 caps Oral Daily Start Date: [...] Former smoker; Type: Cigarettes Assessment and Plan No data available for this section
--- OUTSIDE RECORDS SUMMARY | 2017-10-03 08:32 | External Medical Summary | Referral Summary ---
:1935 Author Organization [facility] Address [address] [place] [address] Care Team Providers Name Role Phone Vinny Licea Primary Care Physician Encounter Date(s): 01/12/17 - 01/12/17 [facility] [address] [place] [address]- [place] Discharge Diagnosis: Basal cell carcinoma Discharge Disposition: 01-Home or Self Care Attending [...] Daily, # 90 tabs, 0 Refill(s), Pharmacy: [facility], 1 tabs Oral Daily Start Date: 11/23/16 Status: Orderedatorvastatin 20 mg oral tablet 20 mg 1 tabs, Oral, Daily, # 90 tabs, 0 Refill(s), Pharmacy: [facility], 1 tabs Oral Daily Start Date: 11/23/16 Status: Orderedcarvedilol 25 mg oral tablet See Instructions, TAKE 1 TABLET TWICE A DAY, # 180 tabs, 1 Refill(s), eRx: [facility] Start Date: 12/09/16 Status: Orderedfinasteride 5 mg oral tablet 5 mg 1 tabs, Oral, Daily, # 90 tabs, 1 Refill(s), Pharmacy: [facility], 1 tabs Oral Daily Start Date: 05/27/16 Status: Orderedfosinopril 20 mg oral tablet 20 mg 1 tabs, Oral, BID, # 180 tabs, 1 Refill(s), Pharmacy: [facility], 1 tabs Oral BID Start Date: 11/23/16 Status: OrderedhydroCHLOROthiazide 25 mg oral tablet 25 mg 1 tabs, Oral, Daily, # 90 tabs, 1 Refill(s), Pharmacy: [facility], 1 tabs Oral Daily Start Date: 05/27/16 Status: OrderedLantus Solostar Pen 100 units/mL subcutaneous solution 50 units, SubCutaneous, Bedtime (once a day), DX: E11.9, # 45 mL, 1 Refill(s), Pharmacy: [facility], 50 units SubCutaneous Bedtime ( once a day),Instr:DX: E11.9 Start Date: 05/27/16 Status: OrderedmetFORMIN 500 mg oral tablet See Instructions, 2 tabs oral in the morning and 3 tabs oral at bedtime., # 450 tabs, 0 Refill(s), Pharmacy: [facility], 2 tabs oral in the morning and 3 tabs oral at bedtime. Start Date: 11/23/16 Status: OrderedNovoLOG FlexPen 100 units/mL subcutaneous solution See Instructions, INJECT 20 UNITS SUBCUTANEOUSLY 3 TIMES A DAY BEFORE MEALS DX: E11.9,# 54 mL, 1 Refill(s), Pharmacy: [facility], INJECT 20 UNITS SUBCUTANEOUSLY [...] 1 Refill(s), Pharmacy: 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/09/10 translaminar Knee replacement - R 2008 Knee replacement _ l 2007 History of abdominal aortic aneurysm repair 2002 CABG - Coronary artery bypass graft/pacemaker 2001 Angioplasty 1990 Hernia repair History of back surgery Social History Social History Type Response Smoking Status Former smoker; Type: Cigarettes entered on: 08/15/13 Assessment and Plan Extracted from: Title: Office Visit Note Author: Josh You PA-C Date: 01/12/17 1.Basal cell carcinoma Again, I have recommended that the patient have this area excised by Mohs versus plastics.At this time, the patient would like to monitorfor any regrowth. If he should noticeregrowth, he w illcall our office for internal referral to N[facility] Aragon. Ordered: Office Visit Level 2 Est 68418
--- OUTSIDE RECORDS SUMMARY | 2017-10-03 08:32 | External Medical Summary | Summary of Care ---
:1935 Author Name Cortez Guerrier M.D. Address [address] [place] [address] [place] [address] Care Team Providers Name Role Phone Cortez Guerrier M.D. Unavailable Unavailable Vinny Licea Unavailable Unavailable Unavailable Unavailable Unavailable Functional Status Functional Status Health Issues Name Dates Details Functional status health issues are not documented Status: Cognitive Status Health Issues Name Dates Details Cognitive status health issues are not documented Status: Problems Name Dates Details UTI (urinary tract infection) (599.0, N39.0) Status: Active Enlarged prostate with lower urinary tract symptoms (LUTS) (600.01, N40.1) Status: Active Slow urinary stream (788.62, R39.198) Status: Active Malignant neoplasm of prostate (185, C61) Status: Active Rising PSA level (790.93, R97.20) Status: Active Medications Name Dates Details HydroCHLOROthiazide 12.5 MG Oral Capsule Refills: 0 Active NovoLOG PenFill 100 UNIT/ML SOLN Refills: 0 Active Norvasc 10 MG Oral Tablet Refills: 0 Active Tamsulosin HCl 0.4 MG CP24 Refills: 0 Active MetFORMIN HCl - 500 MG Oral Tablet Refills: 0 Active Lantus 100 UNIT/ML Subcutaneous Solution Refills: 0 Active Fosinopril Sodium 20 MG Oral Tablet Refills: 0 Active Finasteride 5 MG Oral Tablet Refills: 0 Active Famotidine 20 MG Oral Tablet Refills: 0 Active Carvedilol 25 MG Oral Tablet Refills: 0 Active Lipitor 20 MG Oral Tablet Refills: 0 Active Otezla 30 MG Oral [...] Planned Encounters Appointment; Cortez Guerrier M.D. On: 29-Sep-2016 15:15 Interventions Provided Discussion/SummaryImpression: adenocarcinoma of the prostate Finasteride/ Avodart. Currently, the PSA is increasing. Instructions Name Dates Details Instructions not documented [...]
--- OUTSIDE RECORDS SUMMARY | 2017-10-03 08:32 | External Medical Summary | Referral Summary ---
:1935 Author Organization [facility] Address [address] [place] [address] [place] [address] Care Team Providers Name Role Phone Vinny Licea Primary Care Physician Encounter [facility] [id number] Date(s): 05/27/16 - 05/27/16 [facility] [place] [address] [place] Discharge Diagnosis: Adult hypothyroidism Discharge Diagnosis: Cancer of prostate Discharge Diagnosis: Benign essential hypertension Discharge Diagnosis: CAD (coronary artery disease) Discharge Diagnosis: Diabetes mellitus, type II Discharge Diagnosis: Hypercholesterolemia Discharge Diagnosis: Psoriasis Discharge Disposition: 01-Home or Self Care Attending Physician: Nadiya Rossi PA-C Admitting Physician: Nadiya Rossi PA-C Vital Signs Most recent to oldest [Reference Range]: 1 Temperature Tympanic [36.6-38.1 degC] 36.1 degC *LOW* (05/27/16 2:28 PM) Peripheral Pulse Rate [60-100 bpm] 88 bpm (05/27/16 2:28 PM) Blood Pressure [90-140/60-90 mmHg] 140/82 mmHg (05/27/16 2:28 PM) SpO2 95 % (05/27/16 2:28 PM) Problem List Condition Effective Dates Status [...] Daily, # 90 tabs, 1 Refill(s), Pharmacy: [facility], 1 tabs Oral Daily Start Date: 05/27/16 Status: Orderedatorvastatin 20 mg oral tablet 20 mg 1 tabs, Oral, Daily, # 90 tabs, 1 Refill(s), Pharmacy: [facility], 1 tabs Oral Daily Start Date: 05/27/16 Status: Orderedbetamethasone dipropionate 0.05% topical ointment 1 danelle, Topical, BID, # 45 g, 3 Refill(s), [email or web address] [id number] Start Date: 10/01/15 Status: Orderedcarvedilol 25 mg oral tablet 25 mg 1 tabs, Oral, BID, # 180 tabs, 1 Refill(s), Pharmacy: [facility], 1 tabs Oral BID Start Date: 05/27/16 Status: Orderedfinasteride 5 mg oral tablet 5 mg 1 tabs, Oral, Daily, # 90 tabs, 1 Refill(s), Pharmacy: [facility], 1 tabs Oral Daily Start Date: 05/27/16 Status: Orderedfosinopril 20 mg oral tablet 20 mg 1 tabs, Oral, BID, # 180 tabs, 1 Refill(s), Pharmacy: [facility], 1 tabs Oral BID Start Date: 05/27/16 Status: OrderedhydroCHLOROthiazide 25 mg oral tablet 25 mg 1 tabs, Oral, Daily, # 90 tabs, 1 Refill(s), Pharmacy: [facility], 1 tabs Oral Daily Start Date: 05/27/16 Status: OrderedLantus Solostar Pen 100 units/mL subcutaneous solution 50 units, SubCutaneous, Bedtime (once a day), DX: E11.9, # 45 mL, 1 Refill(s), Pharmacy: [facility], 50 units SubCutaneous Bedtime ( once a day),Instr:DX: E11.9 Start Date: 05/27/16 Status: OrderedmetFORMIN 500 mg oral tablet See Instructions, 2 tabs oral in the morning and 3 tabs oral at bedtime., # 450 tabs, 1 Refill(s), Pharmacy: [facility], 2 tabs oral in the morning and 3 tabs oral at bedtime. Start Date: 05/27/16 Status: OrderedNovoLOG FlexPen 100 units/mL subcutaneous solution See Instructions, INJECT 20 UNITS SUBCUTANEOUSLY 3 TIMES A DAY BEFORE MEALS DX: E11.9,# 54 mL, 1 Refill(s), Pharmacy: [facility], INJECT 20 UNITS SUBCUTANEOUSLY 3 TIMES A DAY BEFORE MEALS; DX: E11.9 Start Date: 05/27/16 Status: OrderedOtezla 30 mg oral tablet 30 mg 1 tabs, Oral, BID, # 30 tabs, 0 Refill(s) Start Date: 12/03/15 Status: Orderedtamsulosin 0.4 mg oral capsule 0.4 mg 1 caps, Oral, Daily, # 90 caps, 1 Refill(s), Pharmacy: [facility], 1 caps Oral Daily Start Date: 05/27/16 Status: OrderedXarelto 15 mg oral tablet 15 mg 1 tabs, Oral, qPM, # 30 tabs, 0 Refill(s) Start Date: 07/16/15 Status: Ordered Results Chemistry Most recent to oldest [Reference Range]: 1 Sodium Lvl [135-144 mEq/L] 138 mEq/L (05/27/16 3:03 PM) Potassium Lvl [3.5-5.2 mEq/L] 4.3 mEq/L (05/27/16 3:03 PM) Chloride [99-111 mEq/L] 105 mEq/L (05/27/16 3:03 PM) CO2 [23-31 mEq/L] 26 mEq/L (05/27/16 3:03 PM) AGAP [3-20] 7 (05/27/16 3:03 PM) BUN [8-26 mg/dL] 21 mg/dL (05/27/16 3:03 PM) Glucose Lvl [70-99 mg/dL] 162 mg/dL *HI* (05/27/16 3:03 PM) Creatinine Lvl [0.72-1.25 mg/dL] 1.23 mg/dL (05/27/16 3:03 PM) eGFR [>60 mL/min] 56 mL/min 1 *ABN* (05/27/16 3:03 PM) Calcium Lvl [8.4-10.2 mg/dL] 9.5 mg/dL (05/27/16 3:03 PM) TSH with Reflex Free T4 [0.35-4.94] 3.20 (05/27/16 3:03 PM) Hgb A1c [4.1-5.6 %] 6.0 % *HI* (05/27/16 3:03 PM) eAvg Glucose 125.5 mg/dL (05/27/16 3:03 PM) 1Result Comment: Multiply eGFR results by 1.21 for race. Immunizations Given and Recorded Vaccine Date Status [...]
[2017-10-03] MEDS: SALINE FLUSH 10ml SYRINGE IVF PRN ×3 (09:11→20:31)
[2017-10-03] MEDS ORDERED: PANTOPRAZOLE 40 MG INJECTION IVP ONE (09:46)
[2017-10-03] MEDS ORDERED: ONDANSETRON 4 MG/2 ML INJECTION IVP PRN (11:03)
[2017-10-03] MEDS ORDERED: NS FLUSH BAG 500ml IV PRN (11:03)
[2017-10-03 11:09] VITALS: BMI 39.1
--- NOTE | 2017-10-03 11:12 | History & Physical Report ---
History of Present Illness Date: 10/03/17 Chief complaint: Black colored stools HPI: "Neeru Mcclellan is an 82 year old male who presented to [facility] on 10/03/17 for further evaluation of black tarry stools, fatigue, and lightheadedness. He and his report that his symptoms actually started about 2 weeks ago, though were mild at that time with some fatigue and weakness. He started to notice that his stools were darker black in color - they are always black because Dr. Silverman has prescribed iron tabs for iron deficiency anemia. His , Estefania, made an appointment with Dr. Silverman on 09/29/17. His hgb had decreased from 11.3 in August to 9.3 on 09/29/17. He was considering giving him IV iron at that time, and planned on referring him to Dr. Desir again to consider colonoscopy (last one was in August,, negative; Arturo saw Dr. Desir in May, for black stools but had a stable hgb at that time). However, Arturo's symptoms became worse. He became weaker and dizzier. He felt like his knees would give out. He felt like he might pass out but thankfully never did. His stools became looser, ghislaine and tarry in appearance, and were occurring more frequently. He has not had any visual changes, SOA, chest pain, palpitations/racing heart, abdominal pain/cramping, nausea/vomiting. Further, he denies fever/chills, cough /congestion/sore throat, reflux, dysphagia, dysuria (though has had problems urinating for years), wounds, or injuries. He notes intermittent pain to his left lower back, which is a fairly new symptom - he has not had any falls or trauma. While in the ED, he was noted to have heme positive stools which were black with some maroon color. He was hemodynamically stable but his hgb dropped to 7.5. In addition, his renal function was elevated above baseline with creatinine of 1.9; K was slightly high at 5.1. He was typed and screened and was given IVF bolus. Arturo did not take his Xarelto in the morning of 10/03/17 ( neither he nor his know exactly why he's on Xarelto). He had an EKG showing paced rhythm. CXR and head CT did not show acute findings. The hospitalist service was notified and the patient was placed into observation status. Review of Systems All systems PM: 10-point ROS was reviewed, no additional remarkable complaints except - Constitutional Constitutional: Present: fatigue, weakness - Gastrointestinal Gastrointestinal: Present: change in stool character, melena - Genitourinary Genitourinary: Present: difficulty urinating - Musculoskeletal Musculoskeletal: Present: back pain - Neurological Neurological: Present: dizziness, weakness - Hematologic/Lymphatic Hematologic/Lymphatic: Present: easy bruising Past Medical History Medical History: Medical History (Last Updated 10/03/17 @ 11:32 by Leia Ochoa APRN) HTN (hypertension) Iron deficiency anemia Obesity (BMI 30-39.9) Type 2 diabetes mellitus Aortic aneurysm Onset Date: ~2002 Arthritis Coronary artery disease H/O: Ken's palsy Onset Date: ~03/25/12 Prostate cancer Onset Date: ~2012 Sleep apnea uses CPAP Surgical History: -CABG x4 1999. -Aortic stent for abdominal aneurysm 2002. - pacemaker insertion ~2013. -Colonoscopy diverticulosis 2016. -EGD 2016. - Bilateral total knees. -Inguinal hernia repair Family History: Family History (Last Reviewed 06/09/17 @ 13:48 by Katerine Messina [facility]) Father Stroke High blood pressure Brother Diabetes Sister Skin cancer (melanoma) Family History Updates: Father of a stroke at age 72. Mother had heart disease, a few days after ORIF of her hip at age 92. Sister of leukemia at age 26. Sister of melanoma at age 43. Sister after throwing a clot after open heart surgery at age 56. Brother had multiple comorbidities including DM2, CAD, kidney disease and at age 82. Family History: As Above - Social History Smoking status: Former smoker (quit over 20 years ago) Packs per day: 1 Packs-years: 40 Substance use type: does not use Alcohol intake frequency: does not drink Housing: house Household members: spouse Current occupational status: retired Previous occupational history: Applications Systems Analyst - [employer] Social history: PCP _ Dr. Anuja CATHERINE _ Dr. Fadi Clark _ Dr. Mcneal Medications Home Medications Medication Instructions Recorded Confirmed Type Amlodipine [Norvasc] 10 mg PO HS 10/03/17 10/03/17 History Apremilast [Otezla] 30 mg PO DAILY 10/03/17 10/03/17 History Ascorbic Acid [Vitamin C] 1,000 mg PO DAILY 10/03/17 10/03/17 History Atorvastatin [Lipitor] 20 mg PO HS 10/03/17 10/03/17 History Carvedilol 25 mg PO BID 10/03/17 10/03/17 History Ferrous Sulfate [Iron] 325 mg PO BID 10/03/17 10/03/17 History Finasteride [Proscar] 5 mg PO HS 10/03/17 10/03/17 History Fosinopril [Monopril] 20 mg PO BID 10/03/17 10/03/17 History Insulin Degludec/Liraglutide 1 dose SQ DAILY 10/03/17 10/03/17 History [Xultophy 100 Unit-3.6MG/ml Pen] Multivit-Min/FA/Lycopen/Lutein 1 tab PO DAILY 10/03/17 10/03/17 History [Centrum Silver Tablet] Rivaroxaban [Xarelto] 15 mg PO DAILY 10/03/17 10/03/17 History Sitagliptin Phosphate [Januvia] 50 mg PO HS 10/03/17 10/03/17 History Tamsulosin [Flomax] 0.4 mg PO HS 10/03/17 10/03/17 History Vit A/Vit C/Vit E/Zinc/Copper 1 tab PO DAILY 10/03/17 10/03/17 History [Preservision Areds Tablet] hydroCHLOROthiazide 25 mg PO DAILY 10/03/17 10/03/17 History [Hydrochlorothiazide] Allergies Allergy/AdvReac Type Severity Reaction Status Date / Time Sulfa (Sulfonamide Allergy Intermediate RASH Verified 10/03/17 08:15 Antibiotics) hydrocodone AdvReac Mild VOMITING Verified 10/03/17 08:15 oxycodone AdvReac Mild VOMITING Verified 10/03/17 08:15 Exam Vital Signs: Pulse Rate 75 10/03/17 09:10 Respiratory Rate 20 10/03/17 09:10 Blood Pressure 139/61 10/03/17 09:10 Pulse Oximetry 97 10/03/17 09:10 Height/Weight/BMI: Height 1.73 m Weight 120.8 kg - Constitutional Present: no acute distress, well nourished, well developed, obese - Routine HEENT Exam Head: Present: normocephalic Eye: Present: PERRL. Absent: conjunctival icterus, scleral injection, conjunctivae pink (pale) ENT: Present: mucous membranes moist - Routine Neck Exam Present: supple - Routine Respiratory Exam Present: CTA bilaterally - Routine Cardiovascular Exam Present: RRR, S1, S2, murmur (3/6 systolic) - Routine Abdominal Exam Present: soft, normoactive bowel sounds, non distended, non tender - Routine Extremities Exam Present: edema (trace to 1+ edema to ankles), pulses intact - Routine Back/Spine/Pelvis Exam Back/Spine: Absent: vertebral tenderness Back image: 1 - intermittent pain - Routine Skin Exam Present: intact, dry, pallor, warm, wounds (scabbed lesion noted to left temporal area) - Routine Neurological Exam Present: alert, oriented X3, CN II-XII intact, moving all extremities, vision grossly intact, hearing grossly intact, normal speech. Absent: sensory deficit , motor deficit, altered mental status, facial asymmetry - Routine Psychiatric Exam Present: normal affect, normal thought process, cooperative Results - Labs CBC & Chem 7: 10/03/17 09:07 10/03/17 09:07 - ECG Data Tracing #1 I reviewed this ECG and interpreted as documented below: paced rhythm - Imaging and Cardiology Chest x-ray Status: image reviewed by me Additional comments: pacemaker, sternotomy cardiomegaly, opacity to left heart border/LLL CT scan - head Status: image reviewed by me Additional comments: Atrophy, no ischemic or hemorrhagic findings Assessment and Plan (1) GI bleed Current visit: Yes Status: Acute Assessment and Plan: Assessment GI bleed ABLA, hgb 7.5; chronic iron deficiency anemia Acute renal insufficiency (creatinine 1.9 on admit, August, = 1.5) Hyperkalemia (5.1 on admit) Left lower back pain CAD, AAA (stent), hx of CABG x4 HTN DM2 ELVIN on CPAP Prostate cancer (hormone shots per Dr. Silverman) Osteoarthritis Paroxysmal atrial fibrillation Plan Admit, observation status under the hospitalist service. Transfuse 1 unit PRBC, follow hgb. Check iron stores, consider IV iron infusion. Consult Dr. Desir. Protonix IV BID. SCDs. Hold Xarelto (may need to contact Dr. Aponte's office to determine indication for Xarelto) Hold amlodipine in setting of ABLA and concern for potential hemodynamic instability. Hold fosinopril, HCTZ due to elevated creatinine. Hold Januvia but continue long-acting insulin. Diet: Clear liquids. Advanced directives: (Estefania) is DPOA. + Living Will. DNR status. Discussed with ED provider, Dr. Puri. Old records were reviewed. DVT Prophylaxis: SCD's GI Prophylaxis: Protonix Resuscitation Status: Do Not Resuscitate - Physician Narrative Physician: Ingrid Puri MD Narrative: Date: 10/03/17 Time: 1639 I have independently evaluated and examined this patient. I reviewed the chart, the patient's history, and the FIELD ASSEMBLY SUPERVISOR/PA's documented findings as above. We discussed and formulated the assessment and plan as above with additions as below: Mr. Mcclellan was seen with his at bedside this afternoon. He describes progressive weakness which has worsened significantly over the past week; this has evolved in conjunction with drop in hemoglobin which was known to be 11.9 in June of this year, 11 in early August and 9.? on September 29 compared to current value. He has experienced loose black stools recently and also describes some vague stomach symptoms for which he's been taking Pepto-Bismol more frequently for the past 1-2 weeks since changing from Victoza and Lantus to Xultophy qam injections about 1-2 weeks ago. Patient denied chest pain or dyspnea when I spoke with him but the nurses describe exertional dyspnea since admission. Review of outpatient records indicates Xarelto was initiated in May [address] Aponte for paroxysmal atrial fibrillation with episodes reported the prior January and June. At that time aspirin and Plavix were discontinued and Xarelto was initiated. Mild aortic stenosis reported in cardiology notes with valve area of about 1.6. NAD, vague historian- frequently corrects him Respirations nonlabored, good airflow, anterior lungs clear Abdomen obese, soft, nontender, bowel sounds present Hemoglobin 7.5 with MCV 98.3; iron studies normal with iron saturation 47%. Creatinine elevated from baseline, BUN also up from baseline; heme positive on rectal exam in ER. CT head reviewed by myself-no acute pathology, microvascular ischemia present. 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 Chest x-ray reviewed by myself demonstrating clear lung helton, pacemaker left upper chest. EKG with paced rhythm Symptomatic normocytic anemia with generalized weakness; heme positive. Probable GI bleed likely upper. Vague upper GI symptoms described. Given known history of coronary artery disease patient to receive 1 unit packed red blood cells today. Discussed with Dr. Desir-upper endoscopy planned tomorrow. Xarelto can be held for endoscopic studies and I will notify patient of indication for Xarelto based on Dr. Aponte's note. Hospital Course Summary Disclaimer: The visit summary below is not to be considered part of the above Progress Note. Hospital Course: 10/03/17 Admit, observation status under the hospitalist service. Transfuse 1 unit PRBC, follow hgb. Check iron stores, consider IV iron infusion. Consult Dr. Desir-EGD planned tomorrow. Protonix IV BID. SCDs. Hold Xarelto-started approximately 2 years ago for paroxysmal atrial fibrillation. Hold amlodipine in setting of ABLA and concern for potential hemodynamic instability. Hold fosinopril, HCTZ due to elevated creatinine. Hold Januvia but continue long-acting insulin. Diet: Clear liquids. Advanced directives: (Estefania) is DPOA. + Living Will. DNR status.
[2017-10-03] MEDS: INSULIN DEGLUDEC PO SCH (12:28)
[2017-10-03] MEDS: LIRAGLUTIDE PO SCH (12:28)
--- NOTE | 2017-10-03 12:28 | XRay Report ---
Indication: weakness PROCEDURE: XR chest 1V: Encounter: Initial Comparison: August 29, 2016 Findings: The lungs are stable in appearance without new focal airspace consolidation. There is no pleural effusion or pneumothorax. The heart size, pulmonary vascularity and mediastinal contours are unchanged. Prior CABG. Left pacemaker. IMPRESSION: Stable appearance of the chest without acute cardiopulmonary disease. .
--- NOTE | 2017-10-03 12:30 | CT Scan Report ---
Indication: off balance PROCEDURE: CT head/brain wo con: Encounter: Initial Comparison: March 25, 2012 Technique: Axial CT images through the head were performed without contrast. Iterative Reconstruction dose reducing technique was utilized. FINDINGS: The ventricles are of normal size, shape, and contour for the patient's age. Old bilateral basal ganglia lacunar infarcts. There are scattered areas of low attenuation in the white matter which most likely represent changes from chronic microvascular ischemia. The brainstem, cerebellum, and cerebral hemispheres otherwise have a normal morphology and CT attenuation. There is no evidence of midline displacement. No hemorrhage, signs of acute territorial stroke, mass effect, mass lesions, or edema is evident. The visualized portions of the skull base, midface, and calvarium demonstrate no abnormality. The paranasal sinuses are well aerated and free of significant disease. The tympanic and mastoid cavities appear normal. IMPRESSION: No acute intracranial abnormality or hemorrhage. There is a preliminary report by [facility]. .
[2017-10-03] MEDS: CARVEDILOL 25 MG TABLET PO SCH (18:00)
[2017-10-03] MEDS: PANTOPRAZOLE 40 MG INJECTION IVP SCH (20:30)
[2017-10-03] MEDS: ATORVASTATIN 20 MG TABLET PO SCH (20:31)
[2017-10-03] MEDS: FINASTERIDE 5 MG TABLET PO SCH (20:31)
[2017-10-03] MEDS: TAMSULOSIN 0.4 MG CAPSULE PO SCH (20:31)
[2017-10-03] MEDS ORDERED: FOSINOPRIL 20 MG TABLET PO SCH (21:00)
[2017-10-04] MEDS: LIRAGLUTIDE PO SCH (08:12)
[2017-10-04] MEDS: APREMILAST 30 MG PO SCH (08:12)
[2017-10-04] MEDS: INSULIN DEGLUDEC PO SCH (08:12)
[2017-10-04] MEDS: PANTOPRAZOLE 40 MG INJECTION IVP SCH (08:17)
[2017-10-04] MEDS: CARVEDILOL 25 MG TABLET PO SCH ×2 (08:17→17:27)
[2017-10-04] MEDS: SALINE FLUSH 10ml SYRINGE IVF PRN (08:18)
--- NOTE | 2017-10-04 09:53 | Consultation ---
DATE OF CONSULTATION 10/03/2017 FINDINGS Mr. Mcclellan is an 82-year-old gentleman I was asked to see today as a result of his history for probable melanotic stools in conjunction with his finding of progressive anemia upon laboratory evaluation. Patient is known to my surgical practice. About four months ago, I had saw the patient in my office at that time as a result of his history of some questionable dark stools. The patient' s hemoglobin was stable at that time. He had underwent prior attempted colonoscopy and EGD in the recent past. Colonoscopy was only able to be completed up to 70 cm and a barium enema was subsequently obtained which was within normal limits. His EGD also did not reveal marked abnormalities. Given his stable hemoglobin at that time, we elected not to proceed with endoscopic evaluation. I had recommended at that time to treat the patient empirically for peptic ulcer disease, but the patient refused. The patient's was present this morning who also provided some of the clinical history. They informed me that they have continued to see Dr. Silverman from a hematology standpoint in regards to his anemia. The patient's states that earlier in August, his hemoglobin had went from around 11 to 9. The patient states that they had just recently saw Dr. Silverman who had considered giving him iron. Apparently the patient was also scheduled to come back to see me in the office given his finding of progressive anemia. Over the last several days, the patient states that he has noted that he has had perhaps some increasing black tarry stools. His states that he began to feel increasingly more weak, fatigued and dizzy and that they "knew that he was likely bleeding further". They therefore presented to the emergency room for further evaluation. His hemoglobin has now drifted down to 7.5. The patient is being admitted for further care. Upon questioning the patient, he denies any element of abdominal pain or discomfort. Patient is on chronic anticoagulation. He states that he did not take his Xarelto today upon questioning. PAST MEDICAL HISTORY Chronic Illness/System disorders 1. History for hypertension. 2. History for iron deficiency anemia. 3. History for type 2 diabetes mellitus. 4. History for aortic aneurysm. 5. History for osteoarthritis. 6. History for coronary artery disease. 7. History for prostate cancer. 8. History for Ken's palsy. 9. History for sleep apnea. MEDICATIONS On admission include: 1. Norvasc. 2. Otezla. 3. Vitamin C. 4. Lipitor. 5. Carvedilol. 6. Iron. 7. Proscar. 8. Monopril. 9. Insulin. 10. Multivitamin. 11. Xarelto. 12. Januvia. 13. Flomax. 14. Hydrochlorothiazide. 15. Vitamin supplementation. For complete doses and frequencies, please refer to EMR. ALLERGIES SULFA, HYDROCODONE, and OXYCODONE. SOCIAL HISTORY Patient denies current tobacco use. He apparently stopped smoking about 20 years ago. Denies alcohol use. FAMILY HISTORY Father at age 72 from stroke. Mother also has and had heart disease. Also has a family history for melanoma, leukemia. REVIEW OF SYSTEMS Otherwise negative except as stated above in HPI and Past Medical History for constitutional (positive for general weakness and fatigue as stated above), HEENT, cardiac, respiratory, GI, , musculoskeletal, hematology/oncology ( positive for prostate cancer and anemia), and psychiatric. PHYSICAL EXAMINATION GENERAL: Mr. Mcclellan is an 82-year-old gentleman who this morning did not appear to be in acute distress. VITALS: Temperature 96.3, pulse 69, respirations 22, blood pressure 158/77, SaO2 99% on room air HEENT: Normocephalic. Pupils are equally round and react to light and accommodation. CHEST: Clear to auscultation bilaterally. HEART: Regular rate and rhythm. Normal S1, S2, without gallops, murmurs or clicks. ABDOMEN: Palpation of the abdomen reveals it to be soft and nontender. I do not appreciate any evidence for hepatosplenomegaly nor abnormal masses. EXTREMITIES: Without clubbing, cyanosis, or edema. NEURO: Cranial nerves II-XII grossly intact. Patient without focal, motor, or sensory deficits. LABORATORY/RADIOGRAPHIC/REVIEW OF PATIENT'S CHART Patient's hemoglobin has drifted down to 7.5 as he had informed me earlier today. White count is 8.2. Platelet count was normal at 182. Mean cell volume was actually normal at 98.3. INR was slightly elevated at 1.3. CMP was obtained and his potassium was slightly elevated at 5.1. Chloride was elevated at 109. BUN and creatinine were elevated at 36.0 and 1.9, respectively. ASSESSMENT 82-year-old gentleman with multiple medical comorbidities who presents with history for melanotic stools and progressive anemia upon laboratory evaluation. Most likely upper GI bleed. PLAN I would recommend going ahead and giving the patient a transfusion given his degree of anemia and associated medical comorbidities. Recommend that we treat the patient empirically for peptic ulcer disease. Protonix 40 mg IV b.i.d. has been ordered for the patient. I do not believe that we are dealing with an acute surgical process at this juncture in time. I would recommend that tomorrow we go ahead and proceed with esophagogastroduodenoscopy for further evaluation. He is at a slightly increased risk of bleeding given the fact that he is on Xarelto. I do feel it would be safe, however, to proceed with upper endoscopy tomorrow. I did discuss with the patient what an EGD would entail and its associated risks which included, but were not exclusive of, bleeding and /or perforation. The patient understood and agreed with proposed plan at this time. [facility]'S MEDICAL CENTERMoise
--- NOTE | 2017-10-04 10:11 | Progress Note ---
- Date 10/04/17 Subjective: Vijay states that he feels better today, and was in good spirits this morning. His skin color has improved post transfusion. He denies feeling dizzy or lightheaded when he gets up. He denies chest pain or SOA. He has not had any abdominal pain or nausea. He is NPO for EGD today. Objective Vital signs: Temperature 97.2 F 10/04/17 08:00 Pulse Rate 70 10/04/17 08:00 Respiratory Rate 16 10/04/17 08:00 Blood Pressure 144/75 H 10/04/17 08:00 Pulse Oximetry 97 10/04/17 08:00 Height/Weight/BMI: Height 1.75 m Weight 117.5 kg Body Mass Index 39.1 - Constitutional Present: no acute distress, well nourished, well developed - Routine HEENT Exam Head: Present: normocephalic Eye: Present: PERRL. Absent: conjunctival icterus, scleral injection ENT: Present: mucous membranes moist, oropharynx clear - Routine Respiratory Exam Present: CTA bilaterally - Routine Cardiovascular Exam Present: RRR, S1, S2, murmur - Routine Abdominal Exam Present: soft, normoactive bowel sounds, non distended, non tender - Routine Extremities Exam Present: edema (trace to ankles). Absent: calf tenderness - Routine Skin Exam Present: intact, dry, warm - Routine Neurological Exam Present: alert, oriented X3, CN II-XII intact, moving all extremities, vision grossly intact, hearing grossly intact, normal speech. Absent: sensory deficit , motor deficit, altered mental status, facial asymmetry - Routine Psychiatric Exam Present: normal affect, normal thought process, cooperative Results - Labs CBC & Chem 7: 10/04/17 14:03 10/04/17 07:45 Assessment and Plan Assessment and Plan: Assessment GI bleed Acute blood loose anemia - hgb 7.5 at presentation; chronic iron deficiency anemia Anticoagulation with Xarelto Acute renal insufficiency (creatinine 1.9 on admit, August, = 1.5) Hyperkalemia (POA) Left lower back pain CAD, AAA (stent), hx of CABG x4 HTN Type II Diabetes Mellitus Stage III CKD ELVIN on CPAP Prostate cancer (hormone shots per Dr. Silverman) Osteoarthritis Paroxysmal atrial fibrillation Obesity with BMI 38.3 Plan Iron levels were not low. Hgb 8.1, will repeat this afternoon. Dr. Desir planning EGD today. Dr. Puri noted PAF per pacemaker interrogation reports among Dr. Aponte's notes. Xarelto on hold. Repeat BMP to f/u on elevated renal function & K; start NS at 75 mL/hr since he is NPO. BP stable, will resume amlodipine but continue to hold fosinopril & HCTZ until renal function improves. DVT Prophylaxis: SCD's GI Prophylaxis: Protonix Resuscitation Status: Do Not Resuscitate - Time spent with patient Time with patient PN: 25 minutes - Physician Narrative Physician: Luan Harden MD Narrative: Date: 10/04/17 Time: 1417 Have independently interviewed & examined pt. Chart reviewed. Case discussed with CM & my FOOD PREP WORKER. Care plan developed with my supervision; agree with above. Doing well this afternoon. Tolerated EGD well. Not having ab pain, but some bloating at times. No nausea. Appetite doing well (would like a hamburger, but knows he can't have it due to clear liquid diet). Breathing well. No chest pain. Not up much; not as weak as when presented but notes it is hard to fully assess as he has not been up much. No f/c. Lungs: clear CV: regular AB: soft obese NT/ND BS present EXT: no edema, SCD in place MSE: awake alert appropriate Plan: EGD unremarkable. Dr Desir initiating bowel prep for colonoscopy. Monitor HGB-improvement post transfusion noted. Hold NINFA due to elevation of K and creatinine - both markers improving. Encourage ambulation-nursing to walk in room/halls TID with assistance. Hospital Course Summary Disclaimer: The visit summary below is not to be considered part of the above Progress Note. Hospital Course: 10/03/17 Admit, observation status under the hospitalist service. Transfuse 1 unit PRBC, follow hgb. Check iron stores, consider IV iron infusion. Consult Dr. Desir-EGD planned tomorrow. Protonix IV BID. SCDs. Hold Xarelto-started approximately 2 years ago for paroxysmal atrial fibrillation. Hold amlodipine in setting of ABLA and concern for potential hemodynamic instability. Hold fosinopril, HCTZ due to elevated creatinine. Hold Januvia but continue long-acting insulin. Diet: Clear liquids. Advanced directives: (Estefania) is DPOA. + Living Will. DNR status. 10/04/17 OP DAY - EGD Iron levels were not low. Hgb 8.1, will repeat this afternoon. Dr. Desir planning EGD today. Dr. Puri noted PAF per pacemaker interrogation reports among Dr. Aponte's notes. Xarelto on hold. Repeat BMP to f/u on elevated renal function & K; start NS at 75 mL/hr since he is NPO. BP stable, will resume amlodipine but continue to hold fosinopril & HCTZ until renal function improves. EGD revealed: Irregular GE junction, No Ulcers.
[2017-10-04] MEDS: NS 1,000 ML IV SCH ×2 (10:54→17:22)
--- NOTE | 2017-10-04 12:10 | Anesthesia Preoperative Report ---
Anesthesia Preoperative Record - Date and Time Date: 10/04/17 Preoperative Diagnosis: GI Bleed NPO Since Date: 10/03/17 NPO Since Time: 00:00 Allergies/Adverse Reactions: Allergies Allergy/AdvReac Type Severity Reaction Status Date / Time Sulfa (Sulfonamide Allergy Intermediate RASH Verified 10/03/17 08:15 Antibiotics) hydrocodone AdvReac Mild VOMITING Verified 10/03/17 08:15 oxycodone AdvReac Mild VOMITING Verified 10/03/17 08:15 - Vital Signs Vital Signs: Temperature 98.1 F 10/04/17 11:25 Pulse Rate 71 10/04/17 11:30 Respiratory Rate 16 10/04/17 11:25 Blood Pressure 150/67 H 10/04/17 11:25 Pulse Oximetry 96 10/04/17 11:25 Height and Weight: Height 1.75 m Weight 117.5 kg Body Mass Index 39.1 - Medications Inpatient Medications: Current Medications Amlodipine Besylate (Norvasc) 10 mg PO HS [facility] Atorvastatin Calcium (Lipitor) 20 mg PO HS [facility] Last Admin: 10/03/17 20:31 Dose: 20 mg Carvedilol (Coreg) 25 mg PO BIDWM [facility] Last Admin: 10/04/17 08:17 Dose: 25 mg Finasteride (Proscar) 5 mg PO HS [facility] Last Admin: 10/03/17 20:31 Dose: 5 mg Sodium Chloride (Normal Saline) 1,000 mls @ 75 mls/hr IV .[id number] [facility] Last Infusion: 10/04/17 11:17 Dose: 75 mls/hr Apremilast [Otezla] (30mg - Pt Own) 30 mg PO DAILY [facility] Last Admin: 10/04/17 08:12 Dose: Not Given Insulin Degludec/Liraglutide [ Xultophy 100/3.6] Pen 1 dose PO DAILY [facility] Last Admin: 10/04/17 08:12 Dose: Not Given Ondansetron HCl (Zofran) 4 mg IVP Q6H PRN PRN Reason: Nausea &/or vomiting Pantoprazole Sodium (Protonix Iv) 40 mg IVP BID [facility] Last Admin: 10/04/17 08:17 Dose: 40 mg Sodium Chloride (Iv Flush) 10 - 80 ml IVF PRN PRN PRN Reason: Flushing Last Admin: 10/04/17 08:18 Dose: 20 ml Sodium Chloride (Normal Saline) 500 ml IV PRN PRN Tamsulosin HCl (Flomax) 0.4 mg PO HS [facility] Last Admin: 10/03/17 20:31 Dose: 0.4 mg Home Medications: Home Medications Medication Instructions Recorded Confirmed Type Amlodipine [Norvasc] 10 mg PO HS 10/03/17 10/03/17 History Apremilast [Otezla] 30 mg PO DAILY 10/03/17 10/03/17 History Ascorbic Acid [Vitamin C] 1,000 mg PO DAILY 10/03/17 10/03/17 History Atorvastatin [Lipitor] 20 mg PO HS 10/03/17 10/03/17 History Carvedilol 25 mg PO BID 10/03/17 10/03/17 History Ferrous Sulfate [Iron] 325 mg PO BID 10/03/17 10/03/17 History Finasteride [Proscar] 5 mg PO HS 10/03/17 10/03/17 History Fosinopril [Monopril] 20 mg PO BID 10/03/17 10/03/17 History Insulin Degludec/Liraglutide 1 dose SQ DAILY 10/03/17 10/03/17 History [Xultophy 100 Unit-3.6MG/ml Pen] Multivit-Min/FA/Lycopen/Lutein 1 tab PO DAILY 10/03/17 10/03/17 History [Centrum Silver Tablet] Rivaroxaban [Xarelto] 15 mg PO DAILY 10/03/17 10/03/17 History Sitagliptin Phosphate [Januvia] 50 mg PO HS 10/03/17 10/03/17 History Tamsulosin [Flomax] 0.4 mg PO HS 10/03/17 10/03/17 History Vit A/Vit C/Vit E/Zinc/Copper 1 tab PO DAILY 10/03/17 10/03/17 History [Preservision Areds Tablet] hydroCHLOROthiazide 25 mg PO DAILY 10/03/17 10/03/17 History [Hydrochlorothiazide] Is Patient on Beta Siddharth?: Yes Beta Siddharth Last Dose Date/Time: 10/04/17 @ 0817 - Medical History Respiratory: Reports: Dyspnea (TODAY, with activity), Sleep Apnea (wears cpap) Cardiovascular: Reports: Arrhythmia (SSS, Mobitz type 2 s/p PPM ), Coronary Artery Disease (s/p CABG), Hypertension, High Cholesterol, Other (ABDOMINAL AORTIC STENT) Gastrointestional: Reports: Gastroesophageal Reflux Disease, Morbid Obesity Neuro/Musculoskeletal: Reports: Back Problems, Headaches Renal/Endocrine: Reports: Diabetes Mellitus Type 2 (blood sugar 102) Other History: Reports: Cancer (PROSTATE CANCER) - Surgical History HEENT Surgeries: Reports: Eye Surgery (CATARACT REMOVAL) Cardiac Surgeries/Treatments: Reports: Cardiac Catheterization, Coronary Artery Bypass Graft (QUAD), Pacemaker Respiratory Surgery/Treatments: Reports: CPAP Use DENIES: BiPAP Use GI Surgery/Treatments: Reports: Hernia Repair, Colonoscopy Musculoskeletal Surgery/Tx: Reports: Knee Arthroscopy, Total Knee Replacement Anesthesia Reactions: None Hx Family Anesthesia Reaction: No History of Motion Sickness: No - Social History Smoking Status: Former smoker (quit over 20 years ago) Packs per day: 1 Pack-years: 40 Hx Chewing Tobacco Use: No Second Hand Exposure: No Substance Use Type: does not use Alcohol Intake Frequency: does not drink - Pertinent Findings Laboratory: CBC and BMP 10/04/17 07:45 10/04/17 07:45 BMP 10/04/17 07:45 Sodium 141 Potassium 4.5 Chloride 109 H Carbon Dioxide 24 BUN 32.0 H Creatinine 1.7 H D Glucose 99 Calcium 8.9 Urine 10/03/17 Range/Units 17:01 Urine Color Yellow (YELLOW) Urine Clarity Clear Urine pH 6.0 (5.0-8.0) Ur Specific [place] 1.010 L (1.015-1.025) Urine Protein Negative (NEGATIVE) Urine Glucose (UA) Negative (NEGATIVE) Paced: 100% - Physical Exam Respiratory Exam: Present: lungs clear, bilateral breath sounds equal Cardiovascular Exam: Present: pacemaker - Airway Assessment Mallampati Score: III TMD: 3 Fingerbreadths Neck Extension: fair (thick neck) Teeth: chipped teeth/crowns Overall Assessment: may be difficult mask vent, may be difficult intubation - ASA ASA Score: 4 - Plan Anesthesia: General TIVA - Discussion Discussion: Discussed risks/options/alternatives of anesthesia and questions answered. Patient consents. Nursing pain assessment noted. Present for Discussion: spouse Attestation Statement: Prior to the delivery of any anesthetic medication, I examined the patient, developed the plan, obtained the patient's consent and discussed the risk and benefits of the procedure with the patient/guardian. - Additional Information Seen by Anesthesia: Yes
[2017-10-04] MEDS ORDERED: PROPOFOL 500 MG/50 ML VIAL ONE (12:40)
[2017-10-04] MEDS ORDERED: LIDOCAINE VISCOUS 2% ORAL LIQUID 15ml ONE (12:50)
--- NOTE | 2017-10-04 13:09 | Procedure Note ---
- Procedure Date/Time: Date: 10/04/17 Time: 1309 Surgeon: Thang ASA Score: 4 Proceure: EGD- esophagus biopsies - Postoperative EGD Diagnosis Postoperative EGD Diagnosis: Irregular GE junction, Other (No Ulcers) - Complications Estimated Blood Loss: See Anesthesia Record. Vital Signs: See Anesthesia and PACU record.
[2017-10-04] MEDS ORDERED: Bisacodyl EC TAB 5 MG TABLET PO ONE (13:31)
--- NOTE | 2017-10-04 14:09 | Anesthesia Postoperative Note ---
- Date and Time Date: 10/04/17 Time: 14:09 - Status Patient Participated in Evaluation: Patient Participated in Person Vital Signs: Temperature 96.9 F 10/04/17 13:50 Pulse Rate 68 10/04/17 13:50 Respiratory Rate 16 10/04/17 13:50 Blood Pressure 142/67 H 10/04/17 13:50 Pulse Oximetry 97 10/04/17 13:50 Respiratory Function: Airway Patent Cardiovascular Function: Regular Pulse EKG: Sinus Rhythm Mental Status: Alert and Oriented Pain Intensity: 0 Hydration: Taking PO Fluids Nausea/Vomiting: None Complications During Recover: None Apparent - Follow-Up Instructions Instructions: Per Surgeon
[2017-10-04] MEDS ORDERED: POLYETHYL. GLYCOL 3350 BOTTLE 238 GM PO ONE (15:30)
[2017-10-04] MEDS: AMLODIPINE 10 MG TABLET PO SCH (20:51)
[2017-10-04] MEDS: FINASTERIDE 5 MG TABLET PO SCH (20:52)
[2017-10-04] MEDS: TAMSULOSIN 0.4 MG CAPSULE PO SCH (20:52)
[2017-10-04] MEDS: ATORVASTATIN 20 MG TABLET PO SCH (20:53)
[2017-10-05] MEDS: NS 1,000 ML IV SCH ×3 (07:30→14:13)
--- NOTE | 2017-10-05 07:50 | Anesthesia Preoperative Report ---
Anesthesia Preoperative Record - Date and Time Date: 10/05/17 Preoperative Diagnosis: GI Bleed Proposed Procedure: Colonoscopy NPO Since Date: 10/05/17 NPO Since Time: 00:00 Allergies/Adverse Reactions: Allergies Allergy/AdvReac Type Severity Reaction Status Date / Time Sulfa (Sulfonamide Allergy Intermediate RASH Verified 10/03/17 08:15 Antibiotics) hydrocodone AdvReac Mild VOMITING Verified 10/03/17 08:15 oxycodone AdvReac Mild VOMITING Verified 10/03/17 08:15 - Vital Signs Vital Signs: Temperature 96.3 F L 10/05/17 04:00 Pulse Rate 71 10/05/17 04:00 Respiratory Rate 16 10/05/17 04:00 Blood Pressure 125/60 10/05/17 04:00 Pulse Oximetry 98 10/05/17 04:00 Height and Weight: Height 5 ft 9 in Weight 117.5 kg Body Mass Index 39.1 - Medications Inpatient Medications: Current Medications Amlodipine Besylate (Norvasc) 10 mg PO [facility] Last Admin: 10/04/17 20:51 Dose: 10 mg Atorvastatin Calcium (Lipitor) 20 mg PO [facility] Last Admin: 10/04/17 20:53 Dose: 20 mg Carvedilol (Coreg) 25 mg PO BIDWM [facility] Last Admin: 10/04/17 17:27 Dose: 25 mg Finasteride (Proscar) 5 mg PO [facility] Last Admin: 10/04/17 20:52 Dose: 5 mg Sodium Chloride (Normal Saline) 1,000 mls @ 75 mls/hr IV .[id number] [facility] Last Admin: 10/04/17 17:22 Dose: 75 mls/hr Apremilast [Otezla] (30mg - Pt Own) 30 mg PO DAILY [facility] Last Admin: 10/04/17 08:12 Dose: Not Given Insulin Degludec/Liraglutide [ Xultophy 100/3.6] Pen 1 dose PO DAILY [facility] Last Admin: 10/04/17 08:12 Dose: Not Given Omeprazole (Prilosec) 20 mg PO ACB [facility] Ondansetron HCl (Zofran) 4 mg IVP Q6H PRN PRN Reason: Nausea &/or vomiting Sodium Chloride (Iv Flush) 10 - 80 ml IVF PRN PRN PRN Reason: Flushing Last Admin: 10/04/17 08:18 Dose: 20 ml Sodium Chloride (Normal Saline) 500 ml IV PRN PRN Tamsulosin HCl (Flomax) 0.4 mg PO [facility] Last Admin: 10/04/17 20:52 Dose: 0.4 mg Home Medications: Home Medications Medication Instructions Recorded Confirmed Type Amlodipine [Norvasc] 10 mg PO HS 10/03/17 10/03/17 History Apremilast [Otezla] 30 mg PO DAILY 10/03/17 10/03/17 History Ascorbic Acid [Vitamin C] 1,000 mg PO DAILY 10/03/17 10/03/17 History Atorvastatin [Lipitor] 20 mg PO HS 10/03/17 10/03/17 History Carvedilol 25 mg PO BID 10/03/17 10/03/17 History Ferrous Sulfate [Iron] 325 mg PO BID 10/03/17 10/03/17 History Finasteride [Proscar] 5 mg PO HS 10/03/17 10/03/17 History Fosinopril [Monopril] 20 mg PO BID 10/03/17 10/03/17 History Insulin Degludec/Liraglutide 1 dose SQ DAILY 10/03/17 10/03/17 History [Xultophy 100 Unit-3.6MG/ml Pen] Multivit-Min/FA/Lycopen/Lutein 1 tab PO DAILY 10/03/17 10/03/17 History [Centrum Silver Tablet] Rivaroxaban [Xarelto] 15 mg PO DAILY 10/03/17 10/03/17 History Sitagliptin Phosphate [Januvia] 50 mg PO 10/03/17 10/03/17 History Tamsulosin [Flomax] 0.4 mg PO HS 10/03/17 10/03/17 History Vit A/Vit C/Vit E/Zinc/Copper 1 tab PO DAILY 10/03/17 10/03/17 History [Preservision Areds Tablet] hydroCHLOROthiazide 25 mg PO DAILY 10/03/17 10/03/17 History [Hydrochlorothiazide] Is Patient on Beta Siddharth?: Yes Beta Siddharth Last Dose Date/Time: 10/04/17 @ 0817 - Medical History Respiratory: Reports: Dyspnea (TODAY, with activity), Sleep Apnea (wears cpap) Cardiovascular: Reports: Arrhythmia (SSS, Mobitz type 2 s/p PPM ), Coronary Artery Disease (s/p CABG), Hypertension, High Cholesterol, Other (ABDOMINAL AORTIC STENT) Gastrointestional: Reports: Gastroesophageal Reflux Disease (no nocturnal symptoms), Morbid Obesity DENIES: Nausea or Vomiting Present Neuro/Musculoskeletal: Reports: Back Problems, Headaches Renal/Endocrine: Reports: Diabetes Mellitus Type 2 (blood sugar 102) Other History: Reports: Cancer (PROSTATE CANCER) - Surgical History HEENT Surgeries: Reports: Eye Surgery (CATARACT REMOVAL) Cardiac Surgeries/Treatments: Reports: Cardiac Catheterization, Coronary Artery Bypass Graft (QUAD), Pacemaker Respiratory Surgery/Treatments: Reports: CPAP Use DENIES: BiPAP Use GI Surgery/Treatments: Reports: Hernia Repair, Colonoscopy Musculoskeletal Surgery/Tx: Reports: Knee Arthroscopy, Total Knee Replacement Anesthesia Reactions: None Hx Family Anesthesia Reaction: No History of Motion Sickness: No - Social History Smoking Status: Former smoker (quit over 20 years ago) Packs per day: 1 Pack-years: 40 Hx Chewing Tobacco Use: No Second Hand Exposure: No Substance Use Type: does not use Alcohol Intake Frequency: does not drink - Pertinent Findings Laboratory: CBC and BMP 10/05/17 04:00 10/05/17 04:00 BMP 10/04/17 10/05/17 07:45 04:00 Sodium 141 140 Potassium 4.5 4.2 Chloride 109 H 109 H Carbon Dioxide 24 22 BUN 32.0 H 27.0 H Creatinine 1.7 H D 1.5 D Glucose 99 101 Calcium 8.9 8.2 L EKG: Sinus Rhythm - Physical Exam Respiratory Exam: Present: lungs clear, bilateral breath sounds equal Cardiovascular Exam: Present: systolic murmur, pacemaker - Airway Assessment Mallampati Score: III TMD: 3 Fingerbreadths Neck Extension: fair (thick neck) Teeth: chipped teeth/crowns Overall Assessment: may be difficult mask vent, may be difficult intubation - ASA ASA Score: 4 - Plan Anesthesia: General TIVA - Discussion Discussion: Discussed risks/options/alternatives of anesthesia and questions answered. Patient consents. Nursing pain assessment noted. Present for Discussion: spouse Attestation Statement: Prior to the delivery of any anesthetic medication, I examined the patient, developed the plan, obtained the patient's consent and discussed the risk and benefits of the procedure with the patient/guardian. - Additional Information Seen by Anesthesia: Yes
[2017-10-05] MEDS: LIRAGLUTIDE PO SCH (08:06)
[2017-10-05] MEDS: APREMILAST 30 MG PO SCH (08:06)
[2017-10-05] MEDS: INSULIN DEGLUDEC PO SCH (08:06)
[2017-10-05] MEDS: CARVEDILOL 25 MG TABLET PO SCH ×2 (08:06→18:09)
[2017-10-05] MEDS ORDERED: PROPOFOL 500 MG/50 ML VIAL ONE (08:11)
[2017-10-05] MEDS ORDERED: PHENYLEPHRINE INJ 10 MG/ML VIAL IV ONE (08:17)
--- NOTE | 2017-10-05 08:37 | General Surgery Procedure Note ---
Date of Procedure: 10/05/17 Surgeon: Thang Postoperative Diagnosis: normal colonoscopy with diverticulosis Procedure: colonoscopy Estimated Blood Loss: See Anesthesia Record. Pathology: none sent
--- NOTE | 2017-10-05 08:40 | Anesthesia Postoperative Note ---
- Date and Time Date: 10/05/17 Time: 08:40 - Status Patient Participated in Evaluation: Patient Participated in Person Vital Signs: Temperature 98.7 F 10/05/17 08:31 Pulse Rate 74 10/05/17 08:35 Respiratory Rate 19 10/05/17 08:35 Blood Pressure 85/46 10/05/17 08:35 Pulse Oximetry 99 10/05/17 08:35 Respiratory Function: Airway Patent Cardiovascular Function: Regular Pulse EKG: Sinus Rhythm Mental Status: Alert and Oriented Pain Intensity: 0 Hydration: IV Infusing Nausea/Vomiting: None Complications During Recover: None Apparent - Follow-Up Instructions Instructions: Per Surgeon
--- NOTE | 2017-10-05 09:44 | Operative Note ---
DATE: 10/04/2017 SURGEON: Vijay Desir MD PREOPERATIVE DIAGNOSIS: Anemia, history for melanotic stools. 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 No endoscopic abnormalities to explain melanotic stools/anemia. PROCEDURE: Esophagogastroduodenoscopy with circumferential biopsies from distal esophagus via cold biopsy technique. ANESTHESIA: TIVA/local. BRIEF HISTORY/INDICATIONS Mr. Mcclellan is an 82-year-old gentleman who presented with a history of increasing "black tarry stools" recently. The patient's hemoglobin has also been found to drift downward over the last couple of weeks. As a result of the above indications it was recommended that he undergo an EGD for further evaluation. For completeness please refer to notes in the patient's chart. FINDINGS Upon upper endoscopy the esophagus, stomach and duodenum were found to be essentially within normal limits with the exception there was some progression of the columnar mucosa upon the squamous epithelium to a length of about a centimeter at various locations indicative of short segment Gasca's metaplasia. There was however no evidence for old blood upon the surface of the mucosa within the esophagus, stomach or duodenum. No ulcerations were noted. No abnormalities were noted to explain his history for progressive anemia and "black tarry stools." DESCRIPTION OF PROCEDURE After informed consent was obtained the patient was brought to the endoscopy suite and placed on the table in left lateral decubitus position. The patient subsequently underwent total intravenous anesthesia by the nurse labor relations teacher per my request. Formal time-out was then completed. Next an Olympus gastroscope was inserted into the oropharynx and subsequently the esophagus under visualization. Gastroscope was advanced through the esophagus, stomach, pylorus, duodenal bulb, into the second portion of the duodenum. The scope was slowly withdrawn. The first and second portion of the duodenum were within normal limits. No evidence of duodenitis or ulcerations were noted. The scope was withdrawn back to prepyloric region and antrum. Again no mucosal abnormalities were noted. J maneuver was performed. Cardia and fundus were within normal limits. Endoscopically there was no evidence for significant hiatal hernia. Scope was allowed to straighten and was slowly withdrawn. The remaining corpus of the stomach was well visualized and again without noted abnormalities. As stated above there was no old blood upon the surface of the mucosa within the esophagus, stomach or duodenum. The scope was withdrawn back to the level of the diaphragm. Squamocolumnar junction was located at the level of the diaphragm and was not well demarcated. There was progression of the columnar mucosa upon the squamous epithelium to a length of about a centimeter at various locations. Findings were suggestive of short segment Gasca's metaplasia. Multiple circumferential biopsies were obtained from the distal esophagus via cold biopsy technique at various lengths. The scope was then slowly withdrawn and the remaining esophageal mucosa was found to be within normal limits. The patient tolerated the procedure without difficulty and was sent back to pre area in stable condition. We will await the biopsy results from today's EGD and proceed accordingly with further recommendations thereafter. I would recommend that he undergo a colonoscopy tomorrow for further evaluation of his anemia given the lack of endoscopic findings today upon EGD. [facility]
--- NOTE | 2017-10-05 10:09 | Progress Note ---
- Date 10/05/17 Subjective: Arturo was seen after colonoscopy. He is getting ready to drink barium for small bowel series (Dr. Desir was unable to advance the scope enough to visualize as much of the colon as he would have liked). He is groggy from sedation but otherwise doing fairly well. He c/o left lower back pain which he mentioned on admission. He denies chest pain or dyspnea. No abdominal pain or nausea. Nurses report that he continues to have tarry stools with dark red blood. Objective Vital signs: Temperature 96.5 F L 10/05/17 10:00 Pulse Rate 67 10/05/17 10:00 Respiratory Rate 16 10/05/17 10:00 Blood Pressure 126/52 10/05/17 10:00 Pulse Oximetry 97 10/05/17 10:00 Height/Weight/BMI: Height 1.75 m Weight 117.5 kg Body Mass Index 39.1 - Constitutional Present: no acute distress, well nourished, well developed - Routine HEENT Exam Head: Present: normocephalic Eye: Present: PERRL. Absent: conjunctival icterus, scleral injection - Routine Respiratory Exam Present: CTA bilaterally - Routine Cardiovascular Exam Present: RRR, S1, S2, murmur - Routine Abdominal Exam Present: soft, normoactive bowel sounds, non distended, non tender - Routine Extremities Exam Present: edema (trace BLE), pulses intact - Routine Back/Spine/Pelvis Exam Back/Spine: Absent: paraspinal tenderness, vertebral tenderness, muscle spasm - Routine Skin Exam Present: intact, dry, warm - Routine Neurological Exam Present: alert, oriented X3, normal speech - Routine Psychiatric Exam Present: normal affect, normal thought process, cooperative Results - Labs CBC & Chem 7: 10/05/17 04:00 10/05/17 04:00 Assessment and Plan (1) GI bleed Current visit: Yes Status: Acute Assessment and Plan: Assessment GI bleed EGD 10/04/17: 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 Biopsy sent. Colonoscopy 10/05/17: No active bleeding Acute blood loose anemia - hgb 7.5 at presentation; chronic iron deficiency anemia Anticoagulation with Xarelto Acute renal insufficiency (creatinine 1.9 on admit, August, = 1.5) - improved Hyperkalemia (POA) - resolved. Left lower back pain CAD, AAA (stent), hx of CABG x4 HTN Type II Diabetes Mellitus Stage III CKD ELVIN on CPAP Prostate cancer (hormone shots per Dr. Silverman) Osteoarthritis Paroxysmal atrial fibrillation Obesity with BMI 38.3 Plan S/P colonoscopy. Per Dr. Desir, colon had old blood present but no active bleeding. Possible diverticular in origin. Will proceed with small bowel series , and patient may eat after this. Hgb stable at 8.1. Continue to hold Xarelto. Renal function improving, BUN 27 and creatinine 1.5. Continue NS at 75 mL/hr until oral intake stabilizes. Offered PT evaluation for left lower back but patient declined. Discussed with Dr. Desir, Dr. Harden, patient's . DVT Prophylaxis: SCD's GI Prophylaxis: Protonix Resuscitation Status: Do Not Resuscitate - Time spent with patient Time with patient PN: 25 minutes - Physician Narrative Physician: Luan Harden MD Narrative: Date: 10/05/17 Time: 1946 Have independently interviewed and examined pt. Chart reviewed. Case discussed with Dr Desir and my PILLING MACHINE OPERATOR. Care plan developed with my supervision; agree with above. Resting in bed when I went to recheck on him this evening, seen earlier this afternoon. Tolerated Gastrografin without increase ab pain or nausea. As of late afternoon, not had stool output. Breathing stable. No chest pain. Reports not up much due to procedures. Colonoscopy showed old blood in colon, but no definitive source for bleeding. Dr Desir ordered SBFT to help rule out occult malignancy. Lungs: decreased, no distress CV: regular AB: soft nt BS decreased MSE: awake alert appropriate Plan: Awaiting result of SBFT - very slow transition time noted. Diet advance post SBFT. Encourage activities. Monitor lab. Hospital Course Summary Disclaimer: The visit summary below is not to be considered part of the above Progress Note. Hospital Course: 10/03/17 Admit, observation status under the hospitalist service. Transfuse 1 unit PRBC, follow hgb. Check iron stores, consider IV iron infusion. Consult Dr. Desir-EGD planned tomorrow. Protonix IV BID. SCDs. Hold Xarelto-started approximately 2 years ago for paroxysmal atrial fibrillation. Hold amlodipine in setting of ABLA and concern for potential hemodynamic instability. Hold fosinopril, HCTZ due to elevated creatinine. Hold Januvia but continue long-acting insulin. Diet: Clear liquids. Advanced directives: (Estefania) is DPOA. + Living Will. DNR status. 10/04/17 OP DAY - EGD Iron levels were not low. Hgb 8.1, will repeat this afternoon. Dr. Desir planning EGD today. Dr. Puri noted PAF per pacemaker interrogation reports among Dr. Aponte's notes. Xarelto on hold. Repeat BMP to f/u on elevated renal function & K; start NS at 75 mL/hr since he is NPO. BP stable, will resume amlodipine but continue to hold fosinopril & HCTZ until renal function improves. EGD revealed: Irregular GE junction, No Ulcers. 10/05/17 OP DAY - Colonoscopy Per Dr. Desir, colon had old blood present but no active bleeding. Possible diverticular in origin. Will proceed with small bowel series, and patient may eat after this. Hgb stable at 8.1. Renal function improving, BUN 27 and creatinine 1.5. Continue NS at 75 mL/hr until oral intake stabilizes. Offered PT evaluation for left lower back but patient declined.
--- NOTE | 2017-10-05 12:47 | Operative Note ---
DATE OF SERVICE: 10/05/2017 SURGEON: Vijay Desir MD PREOPERATIVE DIAGNOSIS: Anemia, history for melanotic stools. POSTOPERATIVE DIAGNOSIS: Same, sigmoid diverticulosis. PROCEDURE: Colonoscopy. ANESTHESIA: TIVA. BRIEF HISTORY/INDICATIONS Mr. Mcclellan is an 82-year-old gentleman who recently presented to our hospital as a result of progressive anemia and melanotic stools. He did undergo upper endoscopy/EGD yesterday that did not reveal any acute pathology. It was therefore recommended that he undergo a colonoscopy for further evaluation. For completeness please refer to notes in the patient's chart. This morning the patient was not "cleaned out" and did receive several enemas prior to his procedure. FINDINGS Upon colonoscopy there was evidence for old blood throughout the entire colon. No acute pathology however was again identified. The patient was found to have a few scattered diverticula within the sigmoid colon region. No obvious site of bleeding was present within any of these small diverticula. There was no evidence for angiodysplastic lesions, polyps or jake malignancies. DESCRIPTION OF PROCEDURE After informed consent was obtained the patient was brought to the endoscopy suite and placed on the table in left lateral decubitus position. The patient subsequently underwent total intravenous anesthesia by the nurse harpooner per my request. Formal time-out was then completed. Next a digital rectal examination was performed. Normal sphincter tone. No rectal masses were appreciated. An Olympus colonoscope was inserted in the anus and advanced with the lumen of the colon under direct visualization at all times until the cecum was ascertained. Triangulation of taenia coli and ileocecal valve was identified. Several attempts were made at advancing the colonoscope into the ileocecal valve and into the terminal ileum. This however was to no avail. As stated above there was old blood throughout the entire colon including within the cecum. The scope was then slowly withdrawn again maintaining visualization of the lumen at all times. There was a fair amount of liquidy stool present throughout the entire colon which was suctioned. Overall adequate visualization was able to be accomplished. A small polyp could have been missed as a result of the retained dark blood/stool within the colon. A larger polyp or mass, however, should have been easily identified. The scope was slowly withdrawn again maintaining visualization of the lumen all times. The patient was found to have a few scattered diverticula within the sigmoid colon region. As stated above there was no evidence for angiodysplastic lesions, polyps or jake malignancies. Once the colonoscope was drawn back to the rectal vault a J maneuver was performed. No worrisome perianal pathology was noted. The scope was allowed to straighten and was withdrawn through the anal verge. The patient tolerated the procedure without difficulty and was sent back to preop area in stable condition. From an endoscopy standpoint I was unable to identify the exact etiology for the patient's melanotic stools and anemia. He very well could have a diverticular bleed that was not actively bleeding which in conjunction with his anticoagulation was the culprit for his anemia and melanotic stools. To rule out small bowel neoplasm we will go ahead today and obtain a small bowel series. The patient may ultimately benefit at some point in time by undergoing capsule endoscopy. SERA
[2017-10-05] MEDS: ATORVASTATIN 20 MG TABLET PO SCH (22:00)
[2017-10-05] MEDS: FINASTERIDE 5 MG TABLET PO SCH (22:01)
[2017-10-05] MEDS: AMLODIPINE 10 MG TABLET PO SCH (22:01)
[2017-10-05] MEDS: TAMSULOSIN 0.4 MG CAPSULE PO SCH (22:01)
[2017-10-06] MEDS: NS 1,000 ML IV SCH ×2 (03:52→17:27)
[2017-10-06] MEDS: OMEPRAZOLE 20 MG CAPSULE PO SCH (05:37)
--- NOTE | 2017-10-06 08:37 | XRay Report ---
Indication: GI bleed with normal EGD and normal colonoscopy PROCEDURE: XR small bowel follow through: Encounter: Initial Comparison: None Findings: Barium contrast was administered orally followed by serial abdominal radiographs. University Relations Recruiter images show a nonobstructive nonspecific bowel gas pattern with multiple endovascular coils and aortobiiliac stent graft in place. Contrast traverses nondilated small bowel loops very slowly and is still within the small bowel after six hours post administration. Contrast reaches the cecum and right colon at eight hours after administration. No obvious bowel wall thickening or mass. Impression: Significantly delayed intestinal transit time of eight hours. No evidence of acute obstruction. .
[2017-10-06] MEDS: CARVEDILOL 25 MG TABLET PO SCH ×2 (09:00→17:53)
[2017-10-06] MEDS: APREMILAST 30 MG PO SCH (09:00)
[2017-10-06] MEDS: LIRAGLUTIDE PO SCH (09:03)
[2017-10-06] MEDS: INSULIN DEGLUDEC PO SCH (09:03)
--- NOTE | 2017-10-06 17:18 | Progress Note ---
- Date 10/06/17 Subjective: F/U: Acute GI bleed, acute blood loss anemia Doing well this evening. Has been up and ambulatory with therapy. Did well with walking. Not feeling unsteady like on presentation. Strength improving. Eating well-not feeling ab pain or nausea with oral intake. Passing flatus, but no stool. Breathing well. No chest pain. No f/c. Objective Vital signs: Temperature 97.8 F 10/06/17 15:47 Pulse Rate 69 10/06/17 15:47 Respiratory Rate 20 10/06/17 15:47 Blood Pressure 148/67 H 10/06/17 15:47 Pulse Oximetry 95 10/06/17 15:47 Height/Weight/BMI: Height 1.75 m Weight 115.7 kg Body Mass Index 39.1 - Constitutional Present: well nourished, well developed, obese, cooperative - Routine HEENT Exam Head: Present: normocephalic, atraumatic Eye: Present: EOMI, PERRL, normal accommodation ENT: Present: mucous membranes moist - Routine Respiratory Exam Present: CTA bilaterally. Absent: respiratory distress, wheezes, crackles - Routine Cardiovascular Exam Present: RRR, no murmur - Routine Abdominal Exam Present: soft, normoactive bowel sounds, non distended, non tender - Routine Extremities Exam Present: no edema, pulses intact. Absent: cyanosis, clubbing - Routine Musculoskeletal Exam Musculoskeletal: Present: no clubbing or cyanosis - Routine Skin Exam Present: dry, warm - Routine Neurological Exam Present: alert, oriented X3, CN II-XII intact, moving all extremities, vision grossly intact, hearing grossly intact, normal speech. 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 Biopsy sent. Colonoscopy 10/05/17: No active bleeding Acute blood loose anemia - hgb 7.5 at presentation; chronic iron deficiency anemia Anticoagulation with Xarelto Acute renal insufficiency (creatinine 1.9 on admit, Annam[place], 2017 = 1.5) - improved Hyperkalemia (POA) - resolved. Left lower back pain CAD, AAA (stent), hx of CABG x4 HTN Type II Diabetes Mellitus Stage III CKD ELVIN on CPAP Prostate cancer (hormone shots per Dr. Silverman) Osteoarthritis Paroxysmal atrial fibrillation Obesity with BMI 38.3 Plan Strength and functional abilities improving. Eating well without nausea or ab pain. Passing flatus, but no stool. Hemoglobin with decrease to 8.0. Renal status doing well with creatinine 1.4 and BUN 19. Will stop IVF as taking oral well. Home insulins restarted. Encourage continued ambulation. Anticipate discharge to home soon if continues to do well. Recheck CBC in am secondary to anemia. Repeat BMP in am due to resolving ROWDY. DVT Prophylaxis: SCD's GI Prophylaxis: Protonix Resuscitation Status: Do Not Resuscitate - Time spent with patient Time with patient PN: 25 minutes - Physician Narrative Physician: Luan Harden MD Narrative: Date: 10/06/17 Time: 1714 Hospital Course Summary Disclaimer: The visit summary below is not to be considered part of the above Progress Note. Hospital Course: 10/03/17 Admit, observation status under the hospitalist service. Transfuse 1 unit PRBC, follow hgb. Check iron stores, consider IV iron infusion. Consult Dr. Desir-EGD planned tomorrow. Protonix IV BID. SCDs. Hold Xarelto-started approximately 2 years ago for paroxysmal atrial fibrillation. Hold amlodipine in setting of ABLA and concern for potential hemodynamic instability. Hold fosinopril, HCTZ due to elevated creatinine. Hold Januvia but continue long-acting insulin. Diet: Clear liquids. Advanced directives: (Estefania) is DPOA. + Living Will. DNR status. 10/04/17 OP DAY - EGD Iron levels were not low. Hgb 8.1, will repeat this afternoon. Dr. Desir planning EGD today. Dr. Puri noted PAF per pacemaker interrogation reports among Dr. Aponte's notes. Xarelto on hold. Repeat BMP to f/u on elevated renal function & K; start NS at 75 mL/hr since he is NPO. BP stable, will resume amlodipine but continue to hold fosinopril & HCTZ until renal function improves. EGD revealed: Irregular GE junction, No Ulcers. 10/05/17 OP DAY - Colonoscopy Per Dr. Desir, colon had old blood present but no active bleeding. Possible diverticular in origin. Will proceed with small bowel series, and patient may eat after this. Hgb stable at 8.1. Renal function improving, BUN 27 and creatinine 1.5. Continue NS at 75 mL/hr until oral intake stabilizes. Offered PT evaluation for left lower back but patient declined. Small bowel follow through showed: Significantly delayed intestinal transit time of eight hours. No evidence of acute obstruction. 10/06/17 Strength and functional abilities improving. Eating well without nausea or ab pain. Passing flatus, but no stool. Hemoglobin with decrease to 8.0. Renal status doing well with creatinine 1.4 and BUN 19. Will stop IVF as taking oral well. Home insulins restarted. Encourage continued ambulation. Anticipate discharge to home soon if continues to do well.
[2017-10-06] MEDS: FERROUS SULFATE 324 MG TABLET PO SCH (17:54)
[2017-10-06] MEDS: INSULIN ASPART 100unit/ml INJECTION SQ SCH (17:54)
--- NOTE | 2017-10-06 19:15 | Progress Note ---
DATE OF SERVICE 10/06/2017 FINDINGS Mr. Mcclellan was seen this evening on rounds. He states that he has not had any further bloody stools. In fact, he states he has not had a bowel movement today. PHYSICAL EXAM VITAL SIGNS: Afebrile, normotensive. Last recorded vitals include temperature 97.8, pulse 69, respirations 20, blood pressure 148/67, SAO2 95% on room air. CHEST: Clear to auscultation bilaterally. HEART: Regular rate and rhythm. Normal S1 and S2 without gallops, murmurs or clicks. ABDOMEN: Palpation of the abdomen today reveals it to be soft and completely nontender. No evidence for guarding or rebound. LABORATORY/RADIOGRAPHIC EVALUATION The patient had a CBC today and overall his hemoglobin is stable. Yesterday it was 8.1. Today it is 8.0. BMP obtained and found to be without marked abnormalities. His BUN which was likely elevated as a result of a GI bleed has now decreased to 19.0. It was 36.0 on admission. ASSESSMENT 82-year-old gentleman with multiple medical comorbidities who presented with progressive anemia and melanotic stools. Status post EGD, colonoscopy, small bowel series which did not reveal exact etiology for progressive anemia and melanotic stools. Probable diverticular bleed in etiology. PLAN From a general surgical standpoint I do believe the patient could be discharged to home. I informed the patient that on an outpatient basis it may be of some benefit to have him see a supplier diversity director to discuss the potential need for capsule endoscopy to further evaluate his small bowel to rule out potential angiodysplastic lesions or AVMs involving his small bowel. One may also wish to just continue to follow him from a clinical standpoint and not proceed with further evaluation unless he would continue to have ongoing progressive anemia requiring additional transfusions and have additional melanotic stools in the future. I did discuss these options with the patient this evening. I informed the patient that I would defer this final decision to his digital x ray service engineer/ oncologist as well as to his PCP. SERA
[2017-10-06] MEDS: FINASTERIDE 5 MG TABLET PO SCH (20:39)
[2017-10-06] MEDS: AMLODIPINE 10 MG TABLET PO SCH (20:39)
[2017-10-06] MEDS: TAMSULOSIN 0.4 MG CAPSULE PO SCH (20:39)
[2017-10-06] MEDS: ATORVASTATIN 20 MG TABLET PO SCH (20:39)
[2017-10-06] MEDS ORDERED: SITAGLIPTIN 100 MG TABLET PO SCH (21:00)
[2017-10-06] MEDS ORDERED: NON-FORMULARY MEDICATION 1 EACH EACH (Ferrous Sulfate [Iron] 325 MG) PO SCH (21:00)
[2017-10-06] MEDS ORDERED: SITAGLIPTIN PHOSPHATE 50 MG PO SCH (21:00)
[2017-10-07] MEDS: OMEPRAZOLE 20 MG CAPSULE PO SCH (05:29)
[2017-10-07 07:58] VITALS: BP 132/76; PULSE 73; RESP 18; TEMP 98.1; O2SAT 97
[2017-10-07] MEDS: INSULIN ASPART 100unit/ml INJECTION SQ SCH (08:05)
[2017-10-07] MEDS: FERROUS SULFATE 324 MG TABLET PO SCH (08:06)
[2017-10-07] MEDS: CARVEDILOL 25 MG TABLET PO SCH (08:06)
[2017-10-07] MEDS: LIRAGLUTIDE PO SCH (08:07)
[2017-10-07] MEDS: APREMILAST 30 MG PO SCH (08:07)
[2017-10-07] MEDS: INSULIN DEGLUDEC PO SCH (08:07)
--- NOTE | 2017-10-07 10:47 | Progress Note ---
- Date 10/07/17 Subjective: F/U: Acute GI bleed, acute blood loss anemia Doing well this morning. No new problems or concerns. Eating well, no ab pain or discomfort. Passing flatus but no stool. Strength doing well-not felling dizzy, weak, or unsteady when up. Breathing well. No chest pressure or pain. Objective Vital signs: Temperature 98.1 F 10/07/17 07:55 Pulse Rate 73 10/07/17 07:55 Respiratory Rate 18 10/07/17 07:55 Blood Pressure 132/76 10/07/17 07:55 Pulse Oximetry 97 10/07/17 07:55 Height/Weight/BMI: Height 1.75 m Weight 117.9 kg Body Mass Index 39.1 - Constitutional Present: no acute distress, well nourished, well developed, average body habitus , obese, cooperative - Routine HEENT Exam Head: Present: normocephalic, atraumatic Eye: Present: EOMI, PERRL, normal accommodation ENT: Present: mucous membranes moist - Routine Respiratory Exam Present: CTA bilaterally. Absent: respiratory distress - Routine Cardiovascular Exam Present: RRR - Routine Abdominal Exam Present: soft, normoactive bowel sounds, non distended, non tender - Routine Extremities Exam Present: cyanosis, no edema, pulses intact - Routine Musculoskeletal Exam Musculoskeletal: Present: no clubbing or cyanosis - Routine Skin Exam Present: intact, dry, warm - Routine Neurological Exam Present: alert, oriented X3, CN II-XII intact, moving all extremities, vision grossly intact, hearing grossly intact, normal speech. Absent: motor deficit, altered mental status - Routine Psychiatric Exam Present: normal affect, normal thought process, cooperative Results - Labs CBC & Chem 7: 10/07/17 04:20 10/07/17 04:20 Assessment and Plan (1) GI bleed Current visit: Yes Status: Acute Assessment and Plan: Assessment GI bleed Suspect diverticular Potential for angiodyplastic lesion or AVM not able to be excluded. 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 Biopsy sent. Colonoscopy 10/05/17: No active bleeding Acute blood loose anemia - hgb 7.5 at presentation; chronic iron deficiency anemia Anticoagulation with Xarelto - being held secondary to acute GI bleed Acute renal insufficiency (creatinine 1.9 on admit, August, = 1.5) - improved Stage III CKD Hyperkalemia (POA) - resolved. Left lower back pain CAD, AAA (stent), hx of CABG x4 HTN Type II Diabetes Mellitus Diabetic gastroparesis - Significantly delayed intestinal transit time of eight hours ELVIN on CPAP Prostate cancer (hormone shots per Dr. Silverman) Osteoarthritis Paroxysmal atrial fibrillation Obesity with BMI 38.3 Plan Clinically doing well. Strength improved. Ambulating well. Hemoglobin stable at 8.2. Creatinine improved to 1.3. Medically stable for discharge to home. Will continue to hold Xarelto (used for paroxysmal afib) due to recent GI blood loss. Continue with prior home medications. F/U with Dr Licea in 1 week for evaluation. Recommend checking CBC due to anemia and BMP due to medication use. F/U with Dr Aponte in 2 weeks to discuss Xarelto use. See orders for details. Time spent with patient care and discharge greater than 30 minutes. DVT Prophylaxis: SCD's GI Prophylaxis: Protonix Resuscitation Status: Do Not Resuscitate - Physician Narrative Physician: Luan Harden MD Narrative: Date: 10/07/17 Time: 1044 Hospital Course Summary Disclaimer: The visit summary below is not to be considered part of the above Progress Note. Hospital Course: 10/03/17 Admit, observation status under the hospitalist service. Transfuse 1 unit PRBC, follow hgb. Check iron stores, consider IV iron infusion. Consult Dr. Desir-EGD planned tomorrow. Protonix IV BID. SCDs. Hold Xarelto-started approximately 2 years ago for paroxysmal atrial fibrillation. Hold amlodipine in setting of ABLA and concern for potential hemodynamic instability. Hold fosinopril, HCTZ due to elevated creatinine. Hold Januvia but continue long-acting insulin. Diet: Clear liquids. Advanced directives: (Estefania) is DPOA. + Living Will. DNR status. 10/04/17 OP DAY - EGD Iron levels were not low. Hgb 8.1, will repeat this afternoon. Dr. Desir planning EGD today. Dr. Puri noted PAF per pacemaker interrogation reports among Dr. Aponte's notes. Xarelto on hold. Repeat BMP to f/u on elevated renal function & K; start NS at 75 mL/hr since he is NPO. BP stable, will resume amlodipine but continue to hold fosinopril & HCTZ until renal function improves. EGD revealed: Irregular GE junction, No Ulcers. 10/05/17 OP DAY - Colonoscopy Per Dr. Desir, colon had old blood present but no active bleeding. Possible diverticular in origin. Will proceed with small bowel series, and patient may eat after this. Hgb stable at 8.1. Renal function improving, BUN 27 and creatinine 1.5. Continue NS at 75 mL/hr until oral intake stabilizes. Offered PT evaluation for left lower back but patient declined. Small bowel follow through showed: Significantly delayed intestinal transit time of eight hours. No evidence of acute obstruction. 10/06/17 Strength and functional abilities improving. Eating well without nausea or ab pain. Passing flatus, but no stool. Hemoglobin with decrease to 8.0. Renal status doing well with creatinine 1.4 and BUN 19. Will stop IVF as taking oral well. Home insulins restarted. Encourage continued ambulation. Anticipate discharge to home soon if continues to do well. 10/07/17 Clinically doing well. Strength improved. Ambulating well. Hemoglobin stable at 8.2. Creatinine improved to 1.3. Medically stable for discharge to home. Will continue to hold Xarelto (used for paroxysmal afib) due to recent GI blood loss. Continue with prior home medications. F/U with Dr Licea in 1 week for evaluation. Recommend checking CBC due to anemia and BMP due to medication use. F/U with Dr Aponte in 2 weeks to discuss Xarelto use. See orders for details.
--- NOTE | 2017-10-07 11:19 | Discharge Summary ---
Discharge Information Date of admission: 10/04/17 15:23 Anticipated date of discharge: 10/07/17 Attending Physician: Luan Harden MD Primary care physician: Vinny Licea MD Consults: Physician Consult: Vijay Desir Reason For Exam: GI bleed PT/OT - Discharge Diagnosis (1) GI bleed Status: Acute Problems Reviewed?: Yes Discharge diagnosis GI bleed Suspect diverticular Potential for angiodysplastic lesion or AVM not able to be excluded EGD 10/04/17: irregular GE junction - Path showing mild chronic esophagitis with Gasca's changes Colonoscopy 10/05/17: No active bleeding Associated conditions and complications Acute blood loose anemia - hgb 7.5 at presentation; chronic iron deficiency anemia Anticoagulation with Xarelto - being held secondary to acute GI bleed Gasca's esophagitis Acute renal insufficiency (creatinine 1.9 on admit, August, = 1.5) - improved Stage III CKD Hyperkalemia (POA) - resolved. Left lower back pain CAD, AAA (stent), hx of CABG x4 HTN Type II Diabetes Mellitus Diabetic gastroparesis - Significantly delayed intestinal transit time of eight hours ELVIN on CPAP Prostate cancer (hormone shots per Dr. Silverman) Osteoarthritis Paroxysmal atrial fibrillation Obesity with BMI 38.3 - Procedures Procedures: PROCEDURE: Esophagogastroduodenoscopy with circumferential biopsies from distal esophagus via cold biopsy technique. DATE: 10/04/2017 SURGEON: Vijay Desir MD PREOPERATIVE DIAGNOSIS: Anemia, history for melanotic stools. 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 No endoscopic abnormalities to explain melanotic stools/anemia. PROCEDURE: Colonoscopy. DATE OF SERVICE: 10/05/2017 SURGEON: Vijay Desir MD PREOPERATIVE DIAGNOSIS: Anemia, history for melanotic stools. POSTOPERATIVE DIAGNOSIS: Same, sigmoid diverticulosis. Transfusion 1 unit pRBC transfused 10/03/17 - Laboratory Labs: Admit Lab 10/03/17 09:07 WBC 8.2 Hgb 7.5 L Hct 23.3 L MCV 98.3 Plt Count 182 Neut % (Auto) 73.7 H Lymph % (Auto) 14.6 L Starke % (Auto) 8.6 Eos % (Auto) 1.7 Baso % (Auto) 0.4 Admit Lab 10/03/17 09:07 Sodium 141 Potassium 5.1 H Chloride 109 H Anion Gap 9 BUN 36.0 H Creatinine 1.9 H Estimated Creat Clear 38 GFR Calculation 34 BUN/Creatinine Ratio 19 Glucose 152 H Calculated Osmolality 282 H Calcium 9.2 Total Bilirubin 0.20 AST 18 ALT 15 Alkaline Phosphatase 43 Troponin I < 0.012 NT-Pro-B Natriuret Pep 256 H Total Protein 6.1 L Albumin 3.5 Globulin 2.6 Albumin/Globulin Ratio 1.3 Iron Tests 10/03/17 09:07 Iron 147 TIBC 313 % Saturation 47 10/07/17 04:20 10/07/17 04:20 - Microbiology None - Radiology Radiology: Date of Exam: 10/03/17 Type of Exam: XR chest 1V Findings: The lungs are stable in appearance without new focal airspace consolidation. There is no pleural effusion or pneumothorax. The heart size, pulmonary vascularity and mediastinal contours are unchanged. Prior CABG. Left pacemaker. IMPRESSION: Stable appearance of the chest without acute cardiopulmonary disease. Date of Exam: 10/03/17 Type of Exam: CT head/brain wo con FINDINGS: The ventricles are of normal size, shape, and contour for the patient' s age. Old bilateral basal ganglia lacunar infarcts. There are scattered areas of low attenuation in the white matter which most likely represent changes from chronic microvascular ischemia. The brainstem, cerebellum, and cerebral hemispheres otherwise have a normal morphology and CT attenuation. There is no evidence of midline displacement. No hemorrhage, signs of acute territorial stroke, mass effect, mass lesions, or edema is evident. The visualized portions of the skull base, midface, and calvarium demonstrate no abnormality. The paranasal sinuses are well aerated and free of significant disease. The tympanic and mastoid cavities appear normal. IMPRESSION: No acute intracranial abnormality or hemorrhage. Date of Exam: 10/05/17 Type of Exam: XR small bowel follow through Findings: Barium contrast was administered orally followed by serial abdominal radiographs. Cnc Service Technician images show a nonobstructive nonspecific bowel gas pattern with multiple endovascular coils and aortobiiliac stent graft in place. Contrast traverses nondilated small bowel loops very slowly and is still within the small bowel after six hours post administration. Contrast reaches the cecum and right colon at eight hours after administration. No obvious bowel wall thickening or mass. Impression: Significantly delayed intestinal transit time of eight hours. No evidence of acute obstruction. - Pathology Esophageal biopsy Mild chronic esophagitis with reactive mucosal changes. Intestinal metaplasia, compatible with Gasca's type epithelium. No dysplasia or malignant neoplasm identified. No significant eosinophilic inflammatory infiltrates identified. History of Present Illness HPI: "Neeru Mcclellan is an 82 year old male who presented to [facility] ED on 10/03/17 for further evaluation of black tarry stools, fatigue, and lightheadedness. He and his report that his symptoms actually started about 2 weeks ago, though were mild at that time with some fatigue and weakness. He started to notice that his stools were darker black in color - they are always black because Dr. Silverman has prescribed iron tabs for iron deficiency anemia. His , Estefania, made an appointment with Dr. Silverman on 09/29/17. His hgb had decreased from 11.3 in August to 9.3 on 09/29/17. He was considering giving him IV iron at that time, and planned on referring him to Dr. Desir again to consider colonoscopy (last one was in August,, negative; Arturo saw Dr. Desir in May, for black stools but had a stable hgb at that time). However, Arturo's symptoms became worse. He became weaker and dizzier. He felt like his knees would give out. He felt like he might pass out but thankfully never did. His stools became looser, ghislaine and tarry in appearance, and were occurring more frequently. He has not had any visual changes, SOA, chest pain, palpitations/racing heart, abdominal pain/cramping, nausea/vomiting. Further, he denies fever/chills, cough /congestion/sore throat, reflux, dysphagia, dysuria (though has had problems urinating for years), wounds, or injuries. He notes intermittent pain to his left lower back, which is a fairly new symptom - he has not had any falls or trauma. While in the ED, he was noted to have heme positive stools which were black with some maroon color. He was hemodynamically stable but his hgb dropped to 7.5. In addition, his renal function was elevated above baseline with creatinine of 1.9; K was slightly high at 5.1. He was typed and screened and was given IVF bolus. Arturo did not take his Xarelto in the morning of 10/03/17 ( neither he nor his know exactly why he's on Xarelto). He had an EKG showing paced rhythm. CXR and head CT did not show acute findings. The hospitalist service was notified and the patient was placed into observation status. For complete details of the H&P refer to that document. Objective Vital signs: Temperature 98.1 F 10/07/17 07:55 Pulse Rate 73 10/07/17 07:55 Respiratory Rate 18 10/07/17 07:55 Blood Pressure 132/76 10/07/17 07:55 Pulse Oximetry 97 10/07/17 07:55 Height/Weight/BMI: Height 1.75 m Weight 117.9 kg Body Mass Index 39.1 Hospital Course This is a general summary of the patient's hospital course. For more details refer to the complete medical record. Hospital course: 10/03/17 Admit, observation status under the hospitalist service. Transfuse 1 unit PRBC, follow hgb. Check iron stores, consider IV iron infusion. Consult Dr. Desir-EGD planned tomorrow. Protonix IV BID. SCDs. Hold Xarelto-started approximately 2 years ago for paroxysmal atrial fibrillation. Hold amlodipine in setting of ABLA and concern for potential hemodynamic instability. Hold fosinopril, HCTZ due to elevated creatinine. Hold Januvia but continue long-acting insulin. Diet: Clear liquids. Advanced directives: (Estefania) is DPOA. + Living Will. DNR status. 10/04/17 OP DAY - EGD Iron levels were not low. Hgb 8.1, will repeat this afternoon. Dr. Desir planning EGD today. Dr. Puri noted PAF per pacemaker interrogation reports among Dr. Aponte's notes. Xarelto on hold. Repeat BMP to f/u on elevated renal function & K; start NS at 75 mL/hr since he is NPO. BP stable, will resume amlodipine but continue to hold fosinopril & HCTZ until renal function improves. EGD revealed: Irregular GE junction, No Ulcers. 10/05/17 OP DAY - Colonoscopy Per Dr. Desir, colon had old blood present but no active bleeding. Possible diverticular in origin. Will proceed with small bowel series, and patient may eat after this. Hgb stable at 8.1. Renal function improving, BUN 27 and creatinine 1.5. Continue NS at 75 mL/hr until oral intake stabilizes. Offered PT evaluation for left lower back but patient declined. Small bowel follow through showed: Significantly delayed intestinal transit time of eight hours. No evidence of acute obstruction. 10/06/17 Strength and functional abilities improving. Eating well without nausea or ab pain. Passing flatus, but no stool. Hemoglobin with decrease to 8.0. Renal status doing well with creatinine 1.4 and BUN 19. Will stop IVF as taking oral well. Home insulins restarted. Encourage continued ambulation. Anticipate discharge to home soon if continues to do well. Dr Desir's recommendations: On an outpatient basis it may be of some benefit to have him see a grooving machine operator to discuss the potential need for capsule endoscopy to further evaluate his small bowel to rule out potential angiodysplastic lesions or AVMs involving his small bowel. One may also wish to just continue to follow him from a clinical standpoint and not proceed with further evaluation unless he would continue to have ongoing progressive anemia requiring additional transfusions and have additional melanotic stools in the future. I did discuss these options with the patient this evening. I informed the patient that I would defer this final decision to his senior sales associate/oncologist as well as to his PCP. 10/07/17 Clinically doing well. Strength improved. Ambulating well. Hemoglobin stable at 8.2. Creatinine improved to 1.3. Medically stable for discharge to home. Will continue to hold Xarelto (used for paroxysmal afib) due to recent GI blood loss. Continue with Prilosec 20mg daily for distal esophageal changes and Gasca's. Can use Miralax 17 grams daily to help decrease risk for constipation. Continue with prior home medications, using 500mg Vitamin C twice a day with Iron use. F/U with Dr Licea in 1 week for evaluation. Recommend checking CBC due to anemia and BMP due to medication use. F/U with Dr Aponte in 2 weeks to discuss Xarelto use. See orders for details. Time spent with patient: discharge greater than 30 minutes Resuscitation Status: Do Not Resuscitate Discharge Plan - Discharge Disposition Discharge Date: 10/07/17 Disposition: 01 Discharged Home, Self-Care *Condition: Stable Reason For Visit (Visit label in EMR): GI Bleed - Discharge Medications *Discharge Medications: New Ascorbic Acid [Vitamin C] 500 mg PO BIDWM #1 bottle Omeprazole [Prilosec] 1 cap PO ACB #30 cap Peg 3350 238 G Bottle [Miralax] 17 gm PO DAILY #1 bottle Continue Finasteride [Proscar] 5 mg PO HS Atorvastatin [Lipitor] 20 mg PO HS Amlodipine [Norvasc] 10 mg PO HS Insulin Degludec/Liraglutide [Xultophy 100 Unit-3.6MG/ml Pen] 1 dose SQ DAILY hydroCHLOROthiazide [Hydrochlorothiazide] 25 mg PO DAILY Fosinopril [Monopril] 20 mg PO BID Carvedilol 25 mg PO BID Apremilast [Otezla] 30 mg PO DAILY Ferrous Sulfate [Iron] 325 mg PO BID Multivit-Min/FA/Lycopen/Lutein [Centrum Silver Tablet] 1 tab PO DAILY Sitagliptin Phosphate [Januvia] 50 mg PO HS Insulin Aspart [NovoLOG] 24 unit SQ TIDWM Tamsulosin [Flomax] 0.4 mg PO HS Vit A/Vit C/Vit E/Zinc/Copper [Preservision Areds Tablet] 1 tab PO DAILY Discontinued Rivaroxaban [Xarelto] 15 mg PO DAILY Ascorbic Acid [Vitamin C] 1,000 mg PO DAILY - Discharge Packet/Instructions *Diet: 2000 KCAL ADA low sodium, heart healthy *Activity: As tolerated *Pain Management/Treatment: Continue prior home pain medications *Wound Care: N/A Additional Instructions: Xarelto was stopped during hospiatlization due to bleeding from the gut. Do not restart Xarelto until instructed to by your care providers. Use Prilosec (omeprazole) 20mg daily before breakfast to protect stomach and esophagus. You can fill prescription OR use over the counter omeprazole, whichever is less expensive. Take 500mg Vitamin C with Iron to help maximize absorption of Iron. May use Miralax 17 grams daily to help decrease risk for constipation. *Expected Signs/Symptoms: Improvement of strenth. *Notify Physician if: Temp >100.4. Passing blood in stool or increasing tarry/ black stools. Increased weakness or shortness or breath. Any other worrisome symptoms. *During Business Hours Contact: Dr Licea *After Business Hours Contact: Call [facility] ([phone]) and have your care provider contacted. *Pending Lab/Results: No Pending Lab - Referrals/Follow Up *Referrals/Follow Up: Vinny Licea MD [Primary Care Provider] - 1 Week (Hospital follow up for acute GI bleed. Xarelto on hold. Recommend rechecking CBC due to anemia and BMP secondary to medication use. ) Rakesh Aponte MD [Physician] - 2 Weeks (Hospital follow up for acute GI bleeding requiring transfusion. Discuss resumption of Xarelto. ) - Patient Handouts - Dismissal Complete Discharge Instructions are:: Complete Physician Narrative - Narrative Physician: Luan Harden MD Attestation Narrative: Date: 10/07/17 Time: 1114 I have independently interviewed and examined patient prior to discharge. See my progress note for details. Medically stable for discharge to home.
== END 2017-10-07 12:05 | disposition home or self-care (01) | DRG 378 ==
LOC: ED 08:09 → EDHOLD 08:09 → SUATTDRO 10:03 → MED 11:00
PROVIDERS: ADMIT Internal Medicine; ATTEND Hospitalist
PROC: END.EGD (2017-10-04 12:45)